=== PATIENT | male | born 1970 | race Caucasian/White ===

== ENCOUNTER 2017-09-12 08:27 | Day surgery (SDC) | payer MEDICARE ==
[~2017-09-12] VITALS: Ht 188 cm; Wt 79.4 kg
--- NOTE | ~2017-09-12 | OP ---
PATIENT NAME: RORO GARLAND MEDICAL RECORD: [id number] :74 [facility] DATE: SURGEON: MARVIN REYES MD DATE OF OPERATION: 09/12/2017 REFERRING PHYSICIAN: Dr. Abraham of [place]. LOCAL ATTENDING HAND ENDBAND CUTTER: Marilyn Tom MD PREOPERATIVE DIAGNOSES: End-stage renal disease and dependence on hemodialysis without adequate long-term dialysis access and extensive central vein occlusions. POSTOPERATIVE DIAGNOSES: End-stage renal disease and dependence on hemodialysis without adequate long-term dialysis access and extensive central vein occlusions. OPERATION PERFORMED: Right upper extremity ultrasound-guided basilic vein access, percutaneous basilic vein access and the right upper extremity venogram and superior vena cavogram, also ultrasound-guided access of the right subclavian vein with subclavian venogram, then removal of left subclavian vena port and balloon angioplasty of the left subclavian and brachiocephalic veins and then insertion of a 23 cm HemoSplit tunneled dialysis catheter via the left subclavian vein with the tip reaching well down into the right atrium, all done without complications. ANESTHESIA: General endotracheal per SOX ANALYST SURGEON: Marvin Reyes MD PREOPERATIVE NOTE: Mr. Garland is a 47-year-old white male on chronic hemodialysis in [place]. His cv/cvn cv tsc system operator is Dr. Abraham. Mr. Garland has had several dialysis access operations, both in [place] and at the [facility]. He presently is dialyzing with a right femoral tunneled catheter and has no other access. He has extensive central vein occlusions, but does have a left-sided Infusaport in place. Apparently, he has required a lot of hospitalizations and lot of IVs and lot of medications and fluids, for which reason the Infusaport was implanted. He is diabetic. I saw him in the office last week and brought him to the hospital today as an outpatient with plans to do venography and see if we can find an open vein by ultrasound and maybe get an upper extremity or cervical tunneled dialysis catheter in place, which could give us access to the right atrium, then for implantation of a HeRO AV graft. DESCRIPTION OF PROCEDURE: Under general endotracheal anesthesia, the patient was placed in supine position, prepped and draped in a sterile manner. First, with the right arm abducted, I accessed the basilic vein just above the antecubital space with micropuncture technique and ultrasound guidance and performed a venogram. The basilic vein was widely patent as was the axillary vein up to its then complete occlusion at the rib margin of the chest wall with extensive filling of chest wall collaterals. There was no filling from that direction of any central veins or the subclavian seen on those films. The microcatheter was removed and dressing applied, the arm tucked at his side, the right neck and supraclavicular area were then examined with ultrasound. The OPERATIVE REPORT [id number] RORO GARLAND internal jugular vein was obliterated. There was a deep venous structure which I was able to stick with micropuncture technique and ultrasound guidance and I then performed a venogram. This proved to be a segment of the subclavian vein, which was occluded totally medially at the confluence with the internal jugular vein and there was total occlusion of the brachiocephalic vein. I then went to the left side and looked with ultrasound and did not find anything which I could cannulate that communicated with the right atrium. I then made an incision and opened the port pocket and removed the port. I made another more medial incision and exposed the port catheter just where it dove into the chest wall to go down to penetrate into the subclavian vein. I removed that catheter over a Glidewire under fluoroscopy and then did a wire exchange using a glide catheter and placed an Amplatz wire and a 7-Kiswahili port. I then dilated the tracts through the left brachiocephalic vein and subclavian vein with an 8 mm diameter x 6 cm long U-verse angioplasty balloon. Contrast injection revealed satisfactory result without any evidence of extravasation or other complication. I was then able to pass dilators over the wire and lastly I inserted the peel-away dilator sheath from a 23 cm long HemoSplit kit. Lastly, I inserted the 23 cm HemoSplit and removed the peel-away sheath and positioned the catheter deep in the right atrium without any complications. The catheter lumens were both accessed and aspirated, free return of blood from each was confirmed. They were then flushed with saline and then heparin-locked, clamped and capped. The Dacron felt cuff was left at the surface of the pectoral muscle and that incision then closed with interrupted inverted 3-0 Vicryl and the skin further closed with interrupted simple 4-0 Prolene sutures. The catheter was sutured to the skin with 2-0 Prolene. The other incision from removal of the port was also closed with interrupted Vicryl and then Prolene. Some Dermabond glue was applied and a layer of Maxorb Ag, then a chlorhexidine patch was applied around the HemoSplit catheter at the entry site and the entirety was then covered with a standard central venous line dressing. At that point, the patient was awakened and taken to the recovery room in stable condition. I did not remove the right femoral catheter. I decided we would leave it in place and have him continue dialysis via that access. We will have him return to the hospital next week with plans to go ahead and implant an HeRO AV graft, I believe in the left upper extremity and using the dilated tract through the subclavian and left brachiocephalic vein for the HeRO outflow device. The femoral catheter then will be removed at that time if we use an Acuseal graft for early access or we could wait another week or two to remove the femoral catheter after a standard PTFE graft has had time to become seated in the tunnel. Blood loss today was less than 5 mL and none replaced. All sponges, instruments, and needles were accounted for. No drain was utilized. No surgical specimen was submitted for histopathology, although I did send the distal tip of the Infusaport catheter for culture. TRANSINT:[id number] Voice Confirmation ID: [id number] DOCUMENT ID: [id number] CC: Dr. Jerrod Abraham OPERATIVE REPORT [id number] RORO GARLAND JAMES MD CC: MARILYN TOM MD and DR JERROD ABRAHAM [id number] DICTATION DATE: 09/12/17 1607 CHIEF AIRPORT GUIDE: 09/12/17 1709 [facility] 09/12/[address] [facility] [address] [id number]
[2017-09-12] MEDS ORDERED: AMBIEN5 MG PO (09:27)
[2017-09-12] MEDS ORDERED: PACERONE100 MG PO (09:27)
[2017-09-12] MEDS ORDERED: FERRIC CITRATE210 MG PO (09:29)
[2017-09-12] MEDS ORDERED: SENSIPAR60 MG PO (09:31)
[2017-09-12] MEDS ORDERED: BACLOFEN10 MG PO (09:31)
[2017-09-12] MEDS ORDERED: DULCOLAX STOOL100 MG PO (09:32)
[2017-09-12] MEDS ORDERED: HUMULIN R100 U/ML SC (09:34)
[2017-09-12] MEDS ORDERED: LANTUS INSULIN10 ML SC (09:35)
[2017-09-12] MEDS ORDERED: LEVOXYL100 MCG PO (09:36)
[2017-09-12] MEDS ORDERED: LYRICA25 MG PO (09:37)
[2017-09-12] MEDS ORDERED: MELATONIN 3 MG1 TAB PO (09:38)
[2017-09-12] MEDS ORDERED: LYRICA50 MG PO (09:38)
[2017-09-12] MEDS ORDERED: REGLAN10 MG PO (09:39)
[2017-09-12] MEDS ORDERED: MIDODRINE HCL10 MG PO (09:39)
[2017-09-12] MEDS ORDERED: PROTONIX40 MG PO (09:39)
[2017-09-12] MEDS ORDERED: ZOCOR20 MG PO (09:40)
[2017-09-12] MEDS ORDERED: VITAMIN D31000 UNIT PO (09:40)
[2017-09-12] MEDS ORDERED: ZOLOFT25 MG PO (09:41)
[2017-09-12 09:45] LABS: BASOPHILS 1.6 % (0-2); EOSINOPHILS 8.6 % (0-7); HEMATOCRIT 44.1 % (42.0-54.0); HEMOGLOBIN 13.8 g/dL (13.5-17.5); IMMATURE GRANULOCYTES 0.5 % (0-5); LYMPHOCYTES 16.9 % (15-50); MCH 30.1 pg (26.0-34.0); MCHC 31.3 g/dL (31.0-37.0); MCV 96.3 fL (80.0-100.0); MEAN PLATELET VOLUME 11.9 fL (7.4-10.4); MONOCYTES 9.4 % (2-11); PLATELET COUNT 178 10x3/uL (130-400); RBC 4.58 10x6/uL (4.20-6.10); RDW 19.2 % (11.5-14.5); WBC 11.1 10x3/uL (4.8-10.8)
[2017-09-12 10:00] VITALS: BP 141/73; Ht 188 cm; Wt 79.4 kg
[2017-09-12 10:00] LABS: APTT 37.6 SECONDS (22.8-39.4); INR 1.07 (0.85-1.17); PROTIME 13.5 SECONDS (11.6-15.0)
[2017-09-12 10:03] LABS: CALCIUM 9.6 mg/dL (8.5-10.1); CARBON DIOXIDE 19.1 mmol/L (21.0-32.0); CREATININE - SERUM 10.2 mg/dL (0.6-1.3)
[2017-09-12 10:04] LABS: ANION GAP 21.9 mmol/L (8-16)
[2017-09-12] MEDS ORDERED: HYDROCODON-ACE1 EAC7 PO (15:39)
== END 2017-09-12 17:50 | disposition home or self-care (01) ==
LOC: D.OPS 08:27 → D.ECHO 10:30 → D.OPS 17:50 → D.ECHO 09-19 09:00
PROVIDERS: Internal Medicine Nephrology
DX: N18.6 End stage renal disease (principal); I82.890 Acute embolism and thrombosis of other specified veins; Z01.812 Encounter for preprocedural laboratory examination

== ENCOUNTER 2017-09-22 06:27 | Inpatient (IN) | payer MEDICARE ==
[~2017-09-22] VITALS: Ht 188 cm; Wt 79.5 kg
--- NOTE | ~2017-09-22 | OP ---
PATIENT NAME: RORO GARLAND MEDICAL RECORD: [id number] :74 LOCATION:D. D.7 ADMISSION DATE:09/23/17 SURGEON: MARVIN REYES MD DATE OF OPERATION: PREOPERATIVE DIAGNOSIS: POSTOPERATIVE DIAGNOSIS: OPERATION PERFORMED: SURGEON: Marvin Reyes MD ANESTHESIA: General endotracheal. OPERATIVE FINDINGS: Very severely strictured left subclavian and brachiocephalic veins and a severely atherosclerotic brachial artery. PREOPERATIVE NOTE: Mr. Garland is an unfortunate 47-year-old white male with diabetes and severe generalized atherosclerotic disease and end-stage renal disease and he is status post multiple failed accesses and is particularly a victim of severe central vein occlusion was due to prior catheter access. About 2 weeks ago, I took him to the operating room and removed a venous access port from his left subclavian vein, which was the only access I could find to his right atrium. Over a guidewire, I dilated and performed angiography of a very strictured left subclavian and left brachiocephalic vein and I was able to implant a 23 cm HemoSplit tunneled dialysis catheter. He is returned to the operating room at this time in order to implant a HeRO graft and I will use that tract we have already begun work on for the pathway of insertion of a HeRO outflow device. DESCRIPTION OF PROCEDURE: With the patient under general endotracheal anesthesia, he was positioned supinely and prepped and draped in sterile manner. I advanced a guidewire through the HemoSplit in the left subclavian and removed it under fluoroscopy and placed a 7-Ugandan introducer sheath and performed a superior venacavogram, which demonstrated again the severely strictured left subclavian and left brachiocephalic veins. I performed then a guidewire exchange placing an Amplatz wire deeply in the inferior vena cava and over that dilated again the subclavian and brachiocephalic veins with an 8 mm angioplasty balloon and repeated contrast injection revealed no complications and significant improvement in the diameter of this strictured vein. I then was able to pass dilators and lastly a dilator peel-away introducer and then through that, I inserted a HeRO outflow device, which was placed over a guidewire over 8 mm balloon. I was able to get the tip of the HeRO way down in the right atrium and removed the peel-away sheath and then I was able to inject contrast to be at the outflow device and confirmed its position to be appropriate in the right atrium. It was heparin lock, clamped and capped. I made an incision then over the deltopectoral groove and pulled the outflow device from the insertion site through a subcutaneous tunnel to the deltopectoral groove. I then surveyed the arm with ultrasound and found a site in about mid humerus level where the brachial artery appeared to be approachable though atherosclerotic I made a longitudinal incision and exposed the artery and controlled it with Silastic loops. The artery was opened and flushed proximally and distally with heparinized saline. I then chose a 6-mm diameter straight Acuseal PTFE graft. I beveled one in then anastomosed it to the artery with running 6-0 Prolene. OPERATIVE REPORT [id number] RORO GARLAND When completed, the vessel and graft were flushed with heparinized saline and the suture line was treated with BioGlue. I made a counter incision distally just above the antecubital space and then placed the graft through a subcutaneous tunnel down to that counter incision and then back up from the counterincision all the way to the deltopectoral groove placing the graft as superficial as possible. It was then shortened, flushed again with heparinized saline. Fluoroscopy was again used to confirm appropriate positioning of the tip of the HeRO outflow device, which was then shortened in the deltopectoral groove. I attached a connector to the end of the Acuseal graft and then connected that to the outflow device all in the usual manner. When all this was done and the occluding clamps and loops were released, excellent flow was immediately established within the new HeRO. The connection was sutured to the investing pectoral fascia with 2-0 Prolene. The wounds all irrigated with Ancef and gentamicin solution. The wounds were closed with Vicryl and running intracuticular Monocryl, sealed with Dermabond glue and dressed with Maxorb Ag, Tegaderm, and Cavilon skin prep. The patient was awakened from his anesthetic and taken to the recovery room. Blood loss during the operation was about 100 cc. None was replaced intraoperatively. All sponges, instruments and needles were accounted for and no drain was utilized and no surgical specimen was submitted for histopathology. PLAN: The patient will remain as an inpatient here in the hospital over the weekend and have dialysis here Monday via his new Acuseal HeRO and then be discharged to return to [place]. His unit there will need to be advised to use Acuseal technique for the next 2 weeks. I would like to see him back at [facility] on Monday week about 10 days from now and plan at that time to do his postop followup visit and remove the remaining femoral tunnel dialysis catheter assuming he has no difficulty with the Acuseal HeRO performing while he is down in [place]. I also think he should be on long-term Plavix therapy. The graft in the left arm in a loop configuration taking origin from the proximal brachial artery and connecting with the HeRO outflow device in the deltopectoral groove. TRANSINT:[id number] Voice Confirmation ID: [id number] DOCUMENT ID: [id number] MARVIN REYES MD CC: DR ELDER ADAMS [id number] DICTATION DATE: 09/29/17 1414 WALL INSULATION SPRAYER: 09/29/17 1549 [facility] 09/26/17 [facility] [address] [place] [address]
[~2017-09-22 06:27] MED LIST: AMBIEN5 MG PO; BACLOFEN10 MG PO; DULCOLAX STOOL100 MG PO; FERRIC CITRATE210 MG PO; HUMULIN R100 U/ML SC; HYDROCODON-ACE1 EAC7 PO; LANTUS INSULIN10 ML SC; LEVOXYL100 MCG PO; LYRICA25 MG PO; LYRICA50 MG PO; MELATONIN 3 MG1 TAB PO; MIDODRINE HCL10 MG PO; PACERONE100 MG PO; PROTONIX40 MG PO; REGLAN10 MG PO; SENSIPAR60 MG PO; VITAMIN D31000 UNIT PO; ZOCOR20 MG PO; ZOLOFT25 MG PO
[2017-09-22 07:12] LABS: BASOPHILS 1.1 % (0-2); EOSINOPHILS 8.4 % (0-7); HEMOGLOBIN 14.8 g/dL (13.5-17.5); IMMATURE GRANULOCYTES 0.3 % (0-5); LYMPHOCYTES 22.1 % (15-50); MCH 30.3 pg (26.0-34.0); MCHC 31.5 g/dL (31.0-37.0); MCV 96.3 fL (80.0-100.0); MEAN PLATELET VOLUME 12.5 fL (7.4-10.4); MONOCYTES 11.1 % (2-11); PLATELET COUNT 150 10x3/uL (130-400); RBC 4.88 10x6/uL (4.20-6.10); RDW 17.8 % (11.5-14.5); WBC 12.8 10x3/uL (4.8-10.8)
[2017-09-22 07:23] LABS: APTT 34.3 SECONDS (22.8-39.4); PROTIME 12.8 SECONDS (11.6-15.0)
[2017-09-22 07:30] LABS: CALCIUM 9.3 mg/dL (8.5-10.1); CARBON DIOXIDE 16.4 mmol/L (21.0-32.0); CREATININE - SERUM 9.2 mg/dL (0.6-1.3)
[2017-09-22 07:32] LABS: POTASSIUM - SERUM 6.4 mmol/L (3.5-5.1)
[2017-09-22 09:07] VITALS: BP 139/78; BMI 22.5
[2017-09-22 09:54] LABS: POTASSIUM - SERUM 5.8 mmol/L (3.5-5.1)
[2017-09-22 19:00] VITALS: BP 151/80
[2017-09-23 04:00] VITALS: BP 140/78
[2017-09-23 08:59] LABS: BASOPHILS 1.3 % (0-2); HEMATOCRIT 41.3 % (42.0-54.0); IMMATURE GRANULOCYTES 0.3 % (0-5); MCH 29.8 pg (26.0-34.0); MCHC 31.5 g/dL (31.0-37.0); MCV 94.7 fL (80.0-100.0); MEAN PLATELET VOLUME 11.7 fL (7.4-10.4); MONOCYTES 11.2 % (2-11); NEUTROPHILS 51.2 % (40-80); PLATELET COUNT 124 10x3/uL (130-400); RBC 4.36 10x6/uL (4.20-6.10); RDW 17.3 % (11.5-14.5)
[2017-09-23 09:11] LABS: APTT 32.8 SECONDS (22.8-39.4); INR 1.04 (0.85-1.17); PROTIME 13.2 SECONDS (11.6-15.0)
[2017-09-23 09:12] LABS: ANION GAP 18.2 mmol/L (8-16); CARBON DIOXIDE 22.7 mmol/L (21.0-32.0); CREATININE - SERUM 8.1 mg/dL (0.6-1.3); POTASSIUM - SERUM 5.9 mmol/L (3.5-5.1)
[2017-09-23 09:50] VITALS: BP 125/75
[2017-09-23 20:40] VITALS: BP 159/77
[2017-09-24 00:15] VITALS: BP 146/78
[2017-09-24 05:09] VITALS: BP 130/78
[2017-09-24 07:59] VITALS: BP 118/74
[2017-09-24 11:22] VITALS: BP 126/71
[2017-09-24 14:11] LABS: ANION GAP 17.8 mmol/L (8-16); CALCIUM 8.9 mg/dL (8.5-10.1); CARBON DIOXIDE 23.6 mmol/L (21.0-32.0)
[2017-09-24 14:12] LABS: CREATININE - SERUM 10.2 mg/dL (0.6-1.3)
[2017-09-24 14:15] LABS: POTASSIUM - SERUM 6.4 mmol/L (3.5-5.1)
[2017-09-24 15:32] VITALS: BP 131/66
[2017-09-24 20:58] VITALS: BP 124/88
[2017-09-25 01:12] VITALS: BP 138/73
[2017-09-25 05:58] VITALS: BP 162/80
[2017-09-25 08:08] VITALS: BP 136/75
[2017-09-25 10:58] VITALS: BP 131/71
[2017-09-25] MEDS ORDERED: PLAVIX75 MG PO (13:16)
[2017-09-25 15:33] VITALS: BP 128/80
[2017-09-25 16:00] LABS: HEMATOCRIT 36.6 % (42.0-54.0); HEMOGLOBIN 11.9 g/dL (13.5-17.5); MCH 29.8 pg (26.0-34.0); MCHC 32.5 g/dL (31.0-37.0); MCV 91.7 fL (80.0-100.0); MEAN PLATELET VOLUME 11.5 fL (7.4-10.4); PLATELET COUNT 119 10x3/uL (130-400); RBC 3.99 10x6/uL (4.20-6.10); RDW 16.4 % (11.5-14.5); WBC 9.2 10x3/uL (4.8-10.8)
[2017-09-25 16:26] LABS: ANION GAP 17.7 mmol/L (8-16); CALCIUM 8.1 mg/dL (8.5-10.1); POTASSIUM - SERUM 5.7 mmol/L (3.5-5.1)
[2017-09-25 16:31] LABS: BASOPHILS 1 % (0-2); EOSINOPHILS 4 % (0-7); LYMPHOCYTES 22 % (15-50); MONOCYTES 6 % (2-11); NEUTROPHILS 67 % (40-80); PLATELET ESTIMATE DECREASED
[2017-09-25 20:00] VITALS: BP 125/79
[2017-09-26] VITALS: BP 120/78
[2017-09-26 04:00] VITALS: BP 126/80
[2017-09-26 05:09] VITALS: BP 125/75; Ht 188 cm; Wt 79.5 kg
[2017-09-26 09:25] VITALS: BP 140/70
[2017-09-26 14:19] LABS: HEPATITIS C ANTIBODY 0.6 (0.0-0.9)
== END 2017-09-26 11:04 | DRG 628 ==
LOC: D.OPS 06:27 → D.M2 19:52 → D.OPS 09-23 12:16 → D.M2 09-23 12:30
PROVIDERS: Anesthesiology; Internal Medicine Nephrology; Surgery
PROC: 03743ZZ Dilation of Left Subclavian Artery, Percutaneous Approach (ICD-10-PCS; 2017-09-23)
PROC: 03783ZZ Dilation of Left Brachial Artery, Percutaneous Approach (ICD-10-PCS; 2017-09-23)
PROC: 037Y3ZZ Dilation of Upper Artery, Percutaneous Approach (ICD-10-PCS; 2017-09-23)
PROC: 03180JV Bypass Left Brachial Artery to Superior Vena Cava with Synthetic Substitute, Open Approach (ICD-10-PCS; principal; 2017-09-23 10:00)
PROC: 5A1D70Z Performance of Urinary Filtration, Intermittent, Less than 6 Hours Per Day (ICD-10-PCS; 2017-09-25)
DX: E87.5 Hyperkalemia (principal); N18.6 End stage renal disease; I12.0 Hypertensive chronic kidney disease with stage 5 chronic kidney disease or end stage renal disease; I87.1 Compression of vein; I70.298 Other atherosclerosis of native arteries of extremities, other extremity; E11.22 Type 2 diabetes mellitus with diabetic chronic kidney disease; Z99.2 Dependence on renal dialysis; Z79.4 Long term (current) use of insulin; I48.91 Unspecified atrial fibrillation; J44.9 Chronic obstructive pulmonary disease, unspecified; F17.200 Nicotine dependence, unspecified, uncomplicated; I95.9 Hypotension, unspecified

== ENCOUNTER 2018-06-11 22:45 | Inpatient (IN) | payer MEDICARE ==
[~2018-06-11] VITALS: Ht 188 cm; Wt 75.5 kg
--- NOTE | ~2018-06-11 | MORECARE ---
CASE MANAGEMENT DISCHARGE SUMMARY PATIENT: CARLO GARLAND UNIT: [id number] ADM DATE: 06/11/18 AGE: 48 : 74 SEX: M ROOM/BED: D.2136 AUTHOR: EMIR,DOC PHYSICIAN: REFERRING PHYSICIAN: ARIADNE BRAVO MD DATE OF SERVICE: 06/18/18 Discharge Plan Patient Name: CARLO GARLAND Facility: [facility]:[place] : 1970 Planned Disposition: Nursing Facility [facility] Cert Anticipated Discharge Date: 06/18/18 Discharge Date: Expected LOS: 7 Initial Reviewer: [email or web address] Initial Review Date: 06/13/2018 Generated: 06/18/18 4:52 pm Comments DCP- Discharge Planning Updated by [email or web address]: Carlo Donis on 06/18/18 2:[address] Patient Name: CARLO GARLAND Encounter No: [id number] : 1970 Primary Insurance: MEDICARE A & B Anticipated DC Date: 06-18-2018 Planned Disposition: Nursing Facility [facility] Cert External Planned Provider: [facility], FIELD SUPERVISOR [employer] MEDICAID BED DCP follow-up note: CM FAXED UPDATE TO [facility], . CM CALLED AND SPOKE TO DIEGO AT [facility], , PROVIDED UPDATE WITH PROJECTED DISCHARGE OF TODAY OR TOMORROW. DIEGO REPORTS THEY WILL ACCEPT PT BACK FOR NURSING HOME CARE, PT HAS NOT SKILLED DAYS REMAINING. CM SPOKE TO PT'S MOTHER IN ROOM WHO REPORTS THEY ARE READY FOR PT TO RETURN TODAY. IMPORTANT MESSAGE FROM MEDICARE PROVIDED AND EXPLAINED. FOR DISCHARGE, FAX DISCHARGE INFORMATION TO [facility], ; [facility], . PT TO TRANSPORT VIA AMBULANCE HE IS NOT ABLE TO SIT SAFELY FOR THE DURATION OF TRANSPORTATION, APPROXIMATELY THREE HOURS. Carlo Donis, CASE MANAGEMENT Appended by Carlo Donis on 06/18/2018 15:52 MEDICAL CONCIERGE: CM RECEIVED DISCHARGE ORDERS, CALLED AND SPOKE TO ROXANA AT [facility], . WHO REPORTS THEY CAN ACCEPT BACK TODAY. CM FAXED DISCHARGE INFORMATION TO [facility], . NURSE REPORT TO BE CALLED TO [facility], . PT TO TRANSPORT VIA AMBULANCE. Carlo Donis, CASE MANAGEMENT DCP- Discharge Planning Updated by [id number]: Bebe Motley on 06/13/18 8:[address] Patient Name: CARLO GARLAND Admission Status: Elective Accout number: [id number] Admission Date: 06-11-2018 : 1970 Admission Diagnosis: Attending: ARIADNE BRAVO Current LOS: 2 Anticipated DC Date: 06-16-2018 Planned Disposition: Nursing Facility [facility] Primary Insurance: MEDICARE A & B Discharge Planning Comments: CM MET WITH PATIENT AND MOTHER (ARIAS) REGARDING D/C NEEDS AND PLANS. PATIENT STATED HE HAS LIVED AT [facility] FOR ABOUT 5 YEARS. PATIENT HAS DIALYSIS ON IN [place] AND IS TRANSPORTED THERE. PATIENT STATED HE WAS UP IN WHEELCHAIR DAILY BEFORE HE FELL. PATIENT IS A RT. AKA AND NOW HAS A LEFT FEMUR FRACTURE. PATIENTS MOTHER WAS CONCERNED HOW TO GET PATIENT BACK TO [facility] AFTER DISCHARGE. CM EXPLAINED THAT THEY WOULD NOTIFY [facility] AND DISCUSS TRANSPORT WHEN PATIENT IS READY FOR DISCHARGE. CM WILL CONTINUE TO FOLLOW PATIENT WITH D/C NEEDS AND PLANS. PCP DR. DMITRI HERNANDEZ ([facility] PHYSICIAN) PHARMACY IS IN HOUSE AT [facility] ([facility] [phone] [facility] [phone] Lead Based Paint Technician: Bebe Motley DCPIA - Discharge Planning Initial Assessment Updated by [email or web address]: Bebe Motley on 06/13/18 9:07 am * Is the patient Alert and Oriented? Yes * How many steps to enter\exit or inside your home? * PCP DR. DMITRI HERNANDEZ (FACILITY DR.) * Pharmacy IN HOUSE * Preadmission Environment [facility] * [facility] [phone] * ADLs Partial Dependent * Partial ADLs (Assistance needed) Bathing Dressing Medication Management Toileting Transfers * Equipment Glucometer Hospital Bed Wheelchair * Other Equipment FACILITY HAS EQUIPMENT NEEDED FOR PATIENT * List name and contact numbers for known caregivers / representatives who currently or will assist patient after discharge: [facility] [phone] * Verbal permission to speak to the caregivers and representatives has been obtained from the patient. Yes * Please name any agencies selected above. [facility] [place] [facility] MWF * Additional services required to return to the preadmission environment? Yes * Can the patient safely return to the preadmission environment? Yes * Has this patient been hospitalized within the prior 30 days at any hospital? No Coverage Notice Reviewer: [email or web address] Jennifer Donis Notice Issued Date-Time: 06/18/2018 11:49 Notice Type: IM Discharge Notice Notice Delivered To: Family Member Relationship to Patient: Mother Print Line Tailer Name: BRENDEN GONCALVES Delivery Method: HAND - Hand Delivered Fe Days: Prior Verbal Notification: Recipient Understood Notice: Yes Recipient Signature: Yes Med Rec Note Co-signed by Attending: Coverage Notice Comment: Last DP export: 06/18/18 10:54 Patient Name: CARLO GARLAND Page 79908 at 1552 All edits/amendments must be made on the electronic document DICTATION DATE: 06/18/18 155 MANAGER TECHNICAL: SARITA 06/18/18 155 RPT#: [id number] DC DATE: STATUS: ADM IN [facility] [address] [place] [address] END OF REPORT
--- NOTE | ~2018-06-11 | MORECARE ---
CASE MANAGEMENT DISCHARGE SUMMARY PATIENT: RORO GARLAND UNIT: [id number] ADM DATE: 06/11/18 AGE: 48 : 74 SEX: M ROOM/BED: D.2136 AUTHOR: EMIRDOC PHYSICIAN: REFERRING PHYSICIAN: ARIADNE BRAVO MD DATE OF SERVICE: 06/18/18 Discharge Plan Patient Name: RORO GARLAND Facility: [facility]:[place] : 1970 Planned Disposition: Nursing Facility [facility] Cert Anticipated Discharge Date: 06/18/18 Discharge Date: Expected LOS: 7 Initial Reviewer: [email or web address] Initial Review Date: 06/13/2018 Generated: 06/18/18 12:31 pm Comments DCP- Discharge Planning Updated by [email or web address]: Bebe Motley on 06/13/18 8:[address] Patient Name: RORO GARLAND Admission Status: Elective Accout number: [id number] Admission Date: 06-11-2018 : 1970 Admission Diagnosis: Attending: ARIADNE BRAVO Current LOS: 2 Anticipated DC Date: 06-16-2018 Planned Disposition: Nursing Facility [facility] Cert Primary Insurance: MEDICARE A & B Discharge Planning Comments: CM MET WITH PATIENT AND MOTHER (ARIAS) REGARDING D/C NEEDS AND PLANS. PATIENT STATED HE HAS LIVED AT [facility] FOR ABOUT 5 YEARS. PATIENT HAS DIALYSIS ON IN [place] AND IS TRANSPORTED THERE. PATIENT STATED HE WAS UP IN WHEELCHAIR DAILY BEFORE HE FELL. PATIENT IS A RT. AKA AND NOW HAS A LEFT FEMUR FRACTURE. PATIENTS MOTHER WAS CONCERNED HOW TO GET PATIENT BACK TO [facility] AFTER DISCHARGE. CM EXPLAINED THAT THEY WOULD NOTIFY [facility] AND DISCUSS TRANSPORT WHEN PATIENT IS READY FOR DISCHARGE. CM WILL CONTINUE TO FOLLOW PATIENT WITH D/C NEEDS AND PLANS. PCP DR. DMITRI HERNANDEZ ([facility]) PHARMACY IS IN HOUSE AT [facility] [place] [phone] [facility] [phone] Fisher Hand Line: Bebe Motley DCPIA - Discharge Planning Initial Assessment Updated by [email or web address]: Bebe Motley on 06/13/18 9:07 am * Is the patient Alert and Oriented? Yes * How many steps to enter\exit or inside your home? * PCP DR. DMITRI [place]DEZ [place] * Pharmacy IN HOUSE * Preadmission Environment Car Manager Detention * Facility Name [facility] [phone] * ADLs Partial Dependent * Partial ADLs (Assistance needed) Bathing Dressing Medication Management Toileting Transfers * Equipment Glucometer Hospital Bed Wheelchair * Other Equipment FACILITY HAS EQUIPMENT NEEDED FOR PATIENT * List name and contact numbers for known caregivers / representatives who currently or will assist patient after discharge: [facility] ([facility] [phone] * Verbal permission to speak to the caregivers and representatives has been obtained from the patient. Yes * Please name any agencies selected above. [facility] [place] [facility] M[facility] * Additional services required to return to the preadmission environment? Yes * Can the patient safely return to the preadmission environment? Yes * Has this patient been hospitalized within the prior 30 days at any hospital? No External Providers External Provider: OTHER-OTHER Next Contact Date: 06/18/2018 Service Request Date: Service Type: Resolution: Reviewer: Comments: Last DP export: 06/18/18 10:04 Patient Name: RORO GARLAND Page 21009 at 1132 All edits/amendments must be made on the electronic document DICTATION DATE: 06/18/18 113 SECURITY SYSTEMS INSTALLER: SARITA 06/18/18 113 RPT#: [id number] DC DATE: STATUS: ADM IN [facility] [address] [place] [address] END OF REPORT
--- NOTE | ~2018-06-11 | MORECARE ---
CASE MANAGEMENT DISCHARGE SUMMARY PATIENT: RORO GARLAND UNIT: [id number] ADM DATE: 06/11/18 AGE: 48 : 74 SEX: M ROOM/BED: D.2136 AUTHOR: EMIRDOC PHYSICIAN: REFERRING PHYSICIAN: ARIADNE BRAVO MD DATE OF SERVICE: 06/18/18 Discharge Plan Patient Name: RORO GARLAND Facility: [facility]:[place] : 1970 Planned Disposition: Nursing Facility [facility] Cert Anticipated Discharge Date: 06/18/18 Discharge Date: Expected LOS: 7 Initial Reviewer: [email or web address] Initial Review Date: 06/13/2018 Generated: 06/18/18 12:04 pm Comments DCP- Discharge Planning Updated by [email or web address]: Bebe Motley on 06/13/18 8:[address] Patient Name: RORO GARLAND Admission Status: Elective Accout number: [id number] Admission Date: 06-11-2018 : 1970 Admission Diagnosis: Attending: ARIADNE BRAVO Current LOS: 2 Anticipated DC Date: 06-16-2018 Planned Disposition: Nursing Facility [facility] Cert Primary Insurance: MEDICARE A & B Discharge Planning Comments: CM MET WITH PATIENT AND MOTHER (ARIAS) REGARDING D/C NEEDS AND PLANS. PATIENT STATED HE HAS LIVED AT [facility] FOR ABOUT 5 YEARS. PATIENT HAS DIALYSIS ON IN [place] AND IS TRANSPORTED THERE. PATIENT STATED HE WAS UP IN WHEELCHAIR DAILY BEFORE HE FELL. PATIENT IS A RT. AKA AND NOW HAS A LEFT FEMUR FRACTURE. PATIENTS MOTHER WAS CONCERNED HOW TO GET PATIENT BACK TO [place] AFTER DISCHARGE. CM EXPLAINED THAT THEY WOULD NOTIFY [place] AND DISCUSS TRANSPORT WHEN PATIENT IS READY FOR DISCHARGE. CM WILL CONTINUE TO FOLLOW PATIENT WITH D/C NEEDS AND PLANS. PCP DR. DMITRI HERNANDEZ ([place] PHYSICIAN) PHARMACY IS IN HOUSE AT [place] [facility] ([facility]) [phone] [facility] [phone] Precision Jig Grinder: Bebe Motley DCPIA - Discharge Planning Initial Assessment Updated by [email or web address]: Bebe Motley on 06/13/18 9:07 am * Is the patient Alert and Oriented? Yes * How many steps to enter\exit or inside your home? * PCP DR. DMITRI HER[place]NDEZ ([place]) * Pharmacy IN HOUSE * Preadmission Environment [employer] * Facility Name [facility] [phone] * ADLs Partial Dependent * Partial ADLs (Assistance needed) Bathing Dressing Medication Management Toileting Transfers * Equipment Glucometer Hospital Bed Wheelchair * Other Equipment FACILITY HAS EQUIPMENT NEEDED FOR PATIENT * List name and contact numbers for known caregivers / representatives who currently or will assist patient after discharge: ARIAS ([facility]) [phone] * Verbal permission to speak to the caregivers and representatives has been obtained from the patient. Yes * Please name any agencies selected above. [facility] [place] [facility] M[facility] * Additional services required to return to the preadmission environment? Yes * Can the patient safely return to the preadmission environment? Yes * Has this patient been hospitalized within the prior 30 days at any hospital? No Last DP export: 06/13/18 8:21 a Patient Name: RORO GARLAND Page [phone] at 1104 All edits/amendments must be made on the electronic document DICTATION DATE: 06/18/181103 FREIGHT HANDLER: SARITA 06/18/181103 RPT#: [id number] DC DATE: STATUS: ADM IN [facility] [address] [place] [address] END OF REPORT
--- NOTE | ~2018-06-11 | MORECARE ---
CASE MANAGEMENT DISCHARGE SUMMARY PATIENT: CARLO GARLAND UNIT: [id number] ADM DATE: 06/11/18 AGE: 48 : 74 SEX: M ROOM/BED: D.2136 AUTHOR: EMIRDOC PHYSICIAN: REFERRING PHYSICIAN: ARIADNE BRAVO MD DATE OF SERVICE: 06/18/18 Discharge Plan Patient Name: CARLO GARLAND Facility: [facility]:[place] : 1970 Planned Disposition: Nursing Facility [facility] Cert Anticipated Discharge Date: 06/18/18 Discharge Date: Expected LOS: 7 Initial Reviewer: [email or web address] Initial Review Date: 06/13/2018 Generated: 06/18/18 12:54 pm Comments DCP- Discharge Planning Updated by [email or web address]: Carlo Donis on 06/18/18 10:[address] Patient Name: CARLO GARLAND Encounter No: [id number] : 1970 Primary Insurance: MEDICARE A & B Anticipated DC Date: 06-18-2018 Planned Disposition: Nursing Facility [facility] Cert External Planned Provider[facility], [facility]MENT [facility]ATIONS [facility] MEDICAID BED DCP follow-up note: CM FAXED UPDATE TO [facility], . CM CALLED AND SPOKE TO DIEGO AT [place], , PROVIDED UPDATE WITH PROJECTED DISCHARGE OF TODAY OR TOMORROW. DIEGO REPORTS THEY WILL ACCEPT PT BACK FOR GOVERNMENT RELATIONS DIRECTOR CARE, PT HAS NOT SKILLED DAYS REMAINING. CM SPOKE TO PT'S MOTHER IN ROOM WHO REPORTS THEY ARE READY FOR PT TO RETURN TODAY. IMPORTANT MESSAGE FROM MEDICARE PROVIDED AND EXPLAINED. FOR DISCHARGE, FAX DISCHARGE INFORMATION TO [facility], ; NURSE REPORT TO BE CALLED TO [facility], . PT TO TRANSPORT VIA AMBULANCE HE IS NOT ABLE TO SIT SAFELY FOR THE DURATION OF TRANSPORTATION, APPROXIMATELY [address] DCP- Discharge Planning Updated by [email or web address]: Bebe Motley on 06/13/18 8:[address] Patient Name: CARLO GARLAND Admission Status: Elective Accout number: [id number] Admission Date: 06-11-2018 : 1970 Admission Diagnosis: Attending: ARIANDE BRAVO Current LOS: 2 Anticipated DC Date: 06-16-2018 Planned Disposition: Nursing Facility [facility] Primary Insurance: MEDICARE A & B Discharge Planning Comments: CM MET WITH PATIENT AND MOTHER (ARIAS) REGARDING D/C NEEDS AND PLANS. PATIENT STATED HE HAS LIVED AT [facility] FOR ABOUT 5 YEARS. PATIENT HAS DIALYSIS ON IN [place] AND IS TRANSPORTED THERE. PATIENT STATED HE WAS UP IN WHEELCHAIR DAILY BEFORE HE FELL. PATIENT IS A RT. AKA AND NOW HAS A LEFT FEMUR FRACTURE. PATIENTS MOTHER WAS CONCERNED HOW TO GET PATIENT BACK TO [place] AFTER DISCHARGE. CM EXPLAINED THAT THEY WOULD NOTIFY [place] AND DISCUSS TRANSPORT WHEN PATIENT IS READY FOR DISCHARGE. CM WILL CONTINUE TO FOLLOW PATIENT WITH D/C NEEDS AND PLANS. PCP DR. DMITRI HERNANDEZ ([place] PHYSICIAN) PHARMACY IS IN HOUSE AT [place] [facility] ([facility] [phone] [facility] [phone] Pot Annealer: Bebe Motley DCPIA - Discharge Planning Initial Assessment Updated by [email or web address]: Bebe Motley on 06/13/18 9:07 am * Is the patient Alert and Oriented? Yes * How many steps to enter\exit or inside your home? * PCP DR. DMITRI HERNANDEZ (FACILITY DR.) * Pharmacy IN HOUSE * Preadmission Environment [facility] * Facility Name [facility] [phone] * ADLs Partial Dependent * Partial ADLs (Assistance needed) Bathing Dressing Medication Management Toileting Transfers * Equipment Glucometer Hospital Bed Wheelchair * Other Equipment FACILITY HAS EQUIPMENT NEEDED FOR PATIENT * List name and contact numbers for known caregivers / representatives who currently or will assist patient after discharge: ARIAS ([facility]) [phone] * Verbal permission to speak to the caregivers and representatives has been obtained from the patient. Yes * Please name any agencies selected above. [facility] [place] [facility] M[facility] * Additional services required to return to the preadmission environment? Yes * Can the patient safely return to the preadmission environment? Yes * Has this patient been hospitalized within the prior 30 days at any hospital? No Coverage Notice Reviewer: [id number] - Carlo Donis Notice Issued Date-Time: 06/18/2018 11:49 Notice Type: IM Discharge Notice Notice Delivered To: Family Member Relationship to Patient: Mother Transit Proof Machine Operator Name: BRENDEN GONCALVES Delivery Method: HAND - Hand Delivered Fe Days: Prior Verbal Notification: Recipient Understood Notice: Yes Recipient Signature: Yes Med Rec Note Co-signed by Attending: Coverage Notice Comment: Last DP export: 06/18/18 10:31 Patient Name: CARLO GARLAND Page 60172 at 1154 All edits/amendments must be made on the electronic document DICTATION DATE: 06/18/18 1153 IN SERVICE COORDINATOR: SARITA 06/18/18 1153 RPT#: [id number] DC DATE: STATUS: ADM IN [facility] [address] [place] [address] END OF REPORT
--- NOTE | ~2018-06-11 | MORECARE ---
CASE MANAGEMENT DISCHARGE SUMMARY PATIENT: RORO GARLAND UNIT: [id number] ADM DATE: 06/11/18 AGE: 48 : 74 SEX: M ROOM/BED: D.2136 AUTHOR: EMIRDOC PHYSICIAN: REFERRING PHYSICIAN: ARIADNE BRAVO MD DATE OF SERVICE: 06/13/18 Discharge Plan Patient Name: RORO GARLAND Facility: [facility]:[place] : 1970 Planned Disposition: Nursing Facility [facility] Cert Anticipated Discharge Date: 06/16/18 Discharge Date: Expected LOS: 5 Initial Reviewer: [email or web address] Initial Review Date: 06/13/2018 Generated: 06/13/18 10:21 am Comments DCP- Discharge Planning Updated by [email or web address]: Bebe Motley on 06/13/18 8:[address] Patient Name: RORO GARLAND Admission Status: Elective Accout number: [id number] Admission Date: 06-11-2018 : 1970 Admission Diagnosis: Attending: ARIADNE BRAVO Current LOS: 2 Anticipated DC Date: 06-16-2018 Planned Disposition: Nursing Facility [facility] Cert Primary Insurance: MEDICARE A & B Discharge Planning Comments: CM MET WITH PATIENT AND MOTHER (ARIAS) REGARDING D/C NEEDS AND PLANS. PATIENT STATED HE HAS LIVED AT [facility] FOR ABOUT 5 YEARS. PATIENT HAS DIALYSIS ON IN [place] AND IS TRANSPORTED THERE. PATIENT STATED HE WAS UP IN WHEELCHAIR DAILY BEFORE HE FELL. PATIENT IS A RT. AKA AND NOW HAS A LEFT FEMUR FRACTURE. PATIENTS MOTHER WAS CONCERNED HOW TO GET PATIENT BACK TO [place] AFTER DISCHARGE. CM EXPLAINED THAT THEY WOULD NOTIFY [place] AND DISCUSS TRANSPORT WHEN PATIENT IS READY FOR DISCHARGE. CM WILL CONTINUE TO FOLLOW PATIENT WITH D/C NEEDS AND PLANS. PCP DR. DMITRI HERNANDEZ ([place] PHYSICIAN) PHARMACY IS IN HOUSE AT [place] [facility] ([facility] [phone] [facility] [phone] Power House Control Room Operator: Bebe Motley DCPIA - Discharge Planning Initial Assessment Updated by [email or web address]: Bebe Motley on 06/13/18 9:07 am * Is the patient Alert and Oriented? Yes * How many steps to enter\exit or inside your home? * PCP DR. DMITRI HERNANDEZ ([facility] [place]) * Pharmacy IN HOUSE * Preadmission Environment [facility] * Facility Name [facility] [phone] * ADLs Partial Dependent * Partial ADLs (Assistance needed) Bathing Dressing Medication Management Toileting Transfers * Equipment Glucometer Hospital Bed Wheelchair * Other Equipment FACILITY HAS EQUIPMENT NEEDED FOR PATIENT * List name and contact numbers for known caregivers / representatives who currently or will assist patient after discharge: [facility] ([facility] [phone] * Verbal permission to speak to the caregivers and representatives has been obtained from the patient. Yes * Please name any agencies selected above. [facility] [place] [facility] * Additional services required to return to the preadmission environment? Yes * Can the patient safely return to the preadmission environment? Yes * Has this patient been hospitalized within the prior 30 days at any hospital? No Last DP export: 06/13/18 8:14 a Patient Name: RORO GARLAND Page [phone] at 0921 All edits/amendments must be made on the electronic document DICTATION DATE: 06/13/18920 CAN SEALER: SARITA 06/13/18920 RPT#: [id number] DC DATE: STATUS: ADM IN [facility] [address] [place] [address] END OF REPORT
--- NOTE | ~2018-06-11 | OP ---
PATIENT NAME: RORO GARLAND MEDICAL RECORD: [id number] :[birth year] LOCATION:[facility] D.2136 ADMISSION DATE:06/11/18 SURGEON: LYRIC MORFIN DO DATE OF OPERATION: 06/13/2018 PROCEDURE PERFORMED: Left femur retrograde IM nail. POSTOPERATIVE DIAGNOSIS: Closed displaced left distal femoral shaft fracture. PROCEDURE PERFORMED: Closed displaced left distal femoral shaft fracture. INDICATION: Mr. Garland is a 48 year old with severe renal disease, on dialysis, and also has had multiple infections. 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 He fell out of bed and fractured his left femur. He was transferred to our hospital here for dialysis problems. X-rays were done in the other hospital and seen to have a femur fracture. He was transferred and I was consulted. I informed the patient that he is at very, very high risk for infection and stabilizing the fracture could provide him some pain relief. He does not ambulate on the left leg much anyway, but the fracture stabilization may give him some pain relief rather than having it being more displaced. He said he would like to have the procedure knowing that he may have possible infection, risk of damage to nerves or vessels, even . The patient was informed of all that and signed consent. SURGEON: Lyric Morfin DO DESCRIPTION OF PROCEDURE: The patient was taken to the operative suite and laid in the supine position. Left lower extremity was prepped and draped in sterile fashion. Once he was prepped and draped, time-out was performed and everyone was in agreement with correct side, site, patient, and procedure. Two grams of Ancef was given to the patient preoperatively. The left knee was then marked out. An incision was made just inferior to the patella. I went through the patellar tendon and the fat pad was partially removed. A starting point was gained on the AP and lateral and the instrument was then used. A reduction tool was then brought at the femoral canal and the guidewire was placed. Guidewire was then measured, measured to 400 nail end. We then reamed up to a 13 and a #12 nail was put in, and packed it into place. The distal locking screws were then placed, 2 transverse and 1 oblique; and then the proximal locking screw was placed using perfect circles with #38 screw. The area of the nail was then locked distally and then copious irrigation was done. The knee joint was closed. The patellar tendon was closed using #1 Vicryl in a isrezg-ch-hryny fashion and then on the skin in inverted interrupted fashion with 2-0 Vicryl. A ZipLine was then placed on the skin. The IT band was closed with 2-0 Vicryl in a kcpvkw-ms-dwclx fashion and then 2-0 Vicryl in inverted interrupted on the skin and a ZipLine on the skin. The proximal incision for the locking screw was irrigated as well and closed with 2-0 inverted interrupted and then 4-0 Monocryl in a horizontal mattress fashion. The incisions were then covered with Telfa and Tegaderm. The patient was awakened and taken to recovery in stable condition. BLOOD LOSS: Approximately 200 mL. COMPLICATIONS: None. TRANSINT:[id number] Voice Confirmation ID: [id number] DOCUMENT ID: [id number] OPERATIVE REPORT [id number] RORO GARLAND,LYRIC Crum DO at 1550 CC: [id number] DICTATION DATE: 06/13/18 1547 CASE FINISHING MACHINE ADJUSTER: 06/13/18 1904 ADM IN [facility] [address] [place] [address]
--- NOTE | ~2018-06-11 | MORECARE ---
CASE MANAGEMENT DISCHARGE SUMMARY PATIENT: RORO GARLAND UNIT: [id number] ADM DATE: 06/11/18 AGE: 48 : 74 SEX: M ROOM/BED: D.2136 AUTHOR: JOHN FIELD PHYSICIAN: REFERRING PHYSICIAN: ARIADNE BRAVO MD DATE OF SERVICE: 06/13/18 Discharge Plan Patient Name: RORO GARLAND Facility: [facility]:[place] : 1970 Planned Disposition: Nursing Facility [facility] Anticipated Discharge Date: 06/16/18 Discharge Date: Expected LOS: 5 Initial Reviewer: [id number] Initial Review Date: 06/13/2018 Generated: 06/13/18 10:14 am DCPIA - Discharge Planning Initial Assessment Updated by [email or web address]: Bebe Motley on 06/13/18 9:07 am * Is the patient Alert and Oriented? Yes * How many steps to enter\exit or inside your home? * PCP DR. DMITRI HERNANDEZ ([facility] [place]) * Pharmacy IN HOUSE * Preadmission Environment [facility] * Facility Name [facility] [phone] * ADLs Partial Dependent * Partial ADLs (Assistance needed) Bathing Dressing Medication Management Toileting Transfers * Equipment Glucometer Hospital Bed Wheelchair * Other Equipment FACILITY HAS EQUIPMENT NEEDED FOR PATIENT * List name and contact numbers for known caregivers / representatives who currently or will assist patient after discharge: ARIAS ([facility] [phone] * Verbal permission to speak to the caregivers and representatives has been obtained from the patient. Yes * Please name any agencies selected above. [facility] [place] [facility] * Additional services required to return to the preadmission environment? Yes * Can the patient safely return to the preadmission environment? Yes * Has this patient been hospitalized within the prior 30 days at any hospital? No Last DP export: 06/13/18 8:07 a Patient Name: RORO GARLAND Page 51278 at 0914 All edits/amendments must be made on the electronic document DICTATION DATE: 06/13/18913 MEAT SALES AND STORAGE MANAGER: SARIAT 06/13/18913 RPT#: [id number] DC DATE: STATUS: ADM IN [facility] [address] [place] [address] END OF REPORT
--- NOTE | ~2018-06-11 | MORECARE ---
CASE MANAGEMENT DISCHARGE SUMMARY PATIENT: RORO GARLAND UNIT: [id number] ADM DATE: 06/11/18 AGE: 48 : 74 SEX: M ROOM/BED: D.2136 AUTHOR: JOHN FIELD PHYSICIAN: REFERRING PHYSICIAN: ARIADNE BRAVO MD DATE OF SERVICE: 06/13/18 Discharge Plan Patient Name: RORO GARLAND Facility: [facility]:[place] : 1970 Planned Disposition: Nursing Facility [facility] Anticipated Discharge Date: 06/16/18 Discharge Date: Expected LOS: 5 Initial Reviewer: [email or web address] Initial Review Date: 06/13/2018 Generated: 06/13/18 10:07 am Patient Name: RORO GARLAND Page 24032 at 0907 All edits/amendments must be made on the electronic document DICTATION DATE: 06/13/18905 JOINERY MACHINIST: SARITA 06/13/18905 RPT#: [id number] DC DATE: STATUS: ADM IN [facility] [address] [place] [address] END OF REPORT
[~2018-06-11 22:45] MED LIST changes: +PLAVIX75 MG PO
[2018-06-12] VITALS (7 sets, daily range): BP systolic 147–190; BP diastolic 78–108; Ht 188 cm; Wt 75.5 kg
[2018-06-12] MEDS ORDERED: BAYER CHEWABLE81 MG PO (04:18)
[2018-06-12] MEDS ORDERED: FERRIC CITRATE210 MG PO (04:19)
[2018-06-12] MEDS ORDERED: CHANTIX0.5 MG PO (04:21)
[2018-06-12] MEDS ORDERED: FLUTICASONE PRO16 GM NASAL (04:25)
[2018-06-12] MEDS ORDERED: HUMULIN R100 U/ML SQ (04:26)
[2018-06-12] MEDS ORDERED: CHRONULAC30 ML PO (04:42)
[2018-06-12] MEDS ORDERED: CLOTRIM ANTIFUN15 GM TOPICAL (04:45)
[2018-06-12] MEDS ORDERED: OXYCODONE-APAP1 TAB PO (04:52)
[2018-06-12] MEDS ORDERED: PROTONIX20 MG PO (04:56)
[2018-06-12] MEDS ORDERED: TRAZODONE HCL100 MG PO (05:01)
[2018-06-12 07:19] LABS: BASOPHILS 0.4 % (0-2); HEMATOCRIT 30.1 % (42.0-54.0); HEMOGLOBIN 9.4 g/dL (13.5-17.5); IMMATURE GRANULOCYTES 0.3 % (0-5); LYMPHOCYTES 9.2 % (15-50); MCH 29.4 pg (26.0-34.0); MCHC 31.2 g/dL (31.0-37.0); MCV 94.1 fL (80.0-100.0); MEAN PLATELET VOLUME 11.1 fL (7.4-10.4); MONOCYTES 16.4 % (2-11); NEUTROPHILS 72.7 % (40-80); RDW 14.1 % (11.5-14.5); WBC 10.1 10x3/uL (4.8-10.8)
[2018-06-12 07:21] LABS: PLATELET COUNT 160 10x3/uL (130-400)
[2018-06-12 07:29] LABS: ANION GAP 19.5 mmol/L (8-16); CALCIUM 9.1 mg/dL (8.5-10.1); CARBON DIOXIDE 26.1 mmol/L (21.0-32.0); CREATININE - SERUM 10.4 mg/dL (0.6-1.3); POTASSIUM - SERUM 4.6 mmol/L (3.5-5.1)
[2018-06-13 00:30] VITALS: BP 153/79
[2018-06-13 05:33] VITALS: BP 155/88
[2018-06-13 08:12] VITALS: BP 144/77
[2018-06-13 10:20] LABS: HEP B CORE AB TOTAL Negative (Negative); HEPATITIS C ANTIBODY 0.4 S/CO RAT (0.0-0.9)
[2018-06-13 10:31] LABS: ANION GAP 21.8 mmol/L (8-16); CALCIUM 8.8 mg/dL (8.5-10.1); CARBON DIOXIDE 23.1 mmol/L (21.0-32.0); CREATININE - SERUM 11.6 mg/dL (0.6-1.3); POTASSIUM - SERUM 4.9 mmol/L (3.5-5.1)
[2018-06-13 10:34] LABS: BASOPHILS 0.4 % (0-2); EOSINOPHILS 1.4 % (0-7); HEMATOCRIT 26.9 % (42.0-54.0); HEMOGLOBIN 8.3 g/dL (13.5-17.5); IMMATURE GRANULOCYTES 0.4 % (0-5); LYMPHOCYTES 7.6 % (15-50); MCH 29.6 pg (26.0-34.0); MCHC 30.9 g/dL (31.0-37.0); MEAN PLATELET VOLUME 10.7 fL (7.4-10.4); MONOCYTES 13.9 % (2-11); NEUTROPHILS 76.3 % (40-80); PLATELET COUNT 147 10x3/uL (130-400); RDW 14.2 % (11.5-14.5); WBC 10.4 10x3/uL (4.8-10.8)
[2018-06-13 10:36] LABS: MCV 96.1 fL (80.0-100.0)
[2018-06-13 11:22] VITALS: BP 144/76
[2018-06-13 21:31] VITALS: BP 111/69
[2018-06-14 00:49] VITALS: BP 101/50
[2018-06-14 05:58] VITALS: BP 109/59
[2018-06-14 06:37] LABS: BASOPHILS 0.6 % (0-2); EOSINOPHILS 2.1 % (0-7); HEMATOCRIT 23.3 % (42.0-54.0); IMMATURE GRANULOCYTES 0.4 % (0-5); LYMPHOCYTES 17.1 % (15-50); MCHC 31.8 g/dL (31.0-37.0); MCV 94.3 fL (80.0-100.0); MEAN PLATELET VOLUME 10.7 fL (7.4-10.4); MONOCYTES 18.2 % (2-11); NEUTROPHILS 61.6 % (40-80); PLATELET COUNT 158 10x3/uL (130-400); RBC 2.47 10x6/uL (4.20-6.10); RDW 14.3 % (11.5-14.5)
[2018-06-14 06:45] LABS: ANION GAP 18.4 mmol/L (8-16); CALCIUM 8.2 mg/dL (8.5-10.1); CARBON DIOXIDE 25.3 mmol/L (21.0-32.0); CREATININE - SERUM 12.5 mg/dL (0.6-1.3); POTASSIUM - SERUM 4.7 mmol/L (3.5-5.1)
[2018-06-14 06:50] LABS: WBC 7.2 10x3/uL (4.8-10.8)
[2018-06-14 06:52] LABS: HEMOGLOBIN 7.4 g/dL (13.5-17.5)
[2018-06-14 11:31] VITALS: BP 94/53
[2018-06-14 19:00] VITALS: BP 127/58
[2018-06-15] VITALS (7 sets, daily range): BP systolic 93–124; BP diastolic 40–55
[2018-06-15 08:34] LABS: ANION GAP 26.9 mmol/L (8-16); CALCIUM 8.9 mg/dL (8.5-10.1); POTASSIUM - SERUM 4.4 mmol/L (3.5-5.1)
[2018-06-15 08:37] LABS: CARBON DIOXIDE 18.5 mmol/L (21.0-32.0); CREATININE - SERUM 7.5 mg/dL (0.6-1.3)
[2018-06-15 08:49] LABS: BASOPHILS 0.4 % (0-2); EOSINOPHILS 1.3 % (0-7); HEMATOCRIT 26.5 % (42.0-54.0); HEMOGLOBIN 8.2 g/dL (13.5-17.5); IMMATURE GRANULOCYTES 0.5 % (0-5); LYMPHOCYTES 16.6 % (15-50); MCH 29.4 pg (26.0-34.0); MCHC 30.9 g/dL (31.0-37.0); MEAN PLATELET VOLUME 10.4 fL (7.4-10.4); MONOCYTES 13.8 % (2-11); NEUTROPHILS 67.4 % (40-80); PLATELET COUNT 152 10x3/uL (130-400); RBC 2.79 10x6/uL (4.20-6.10); RDW 16.1 % (11.5-14.5); WBC 7.5 10x3/uL (4.8-10.8)
[2018-06-16 00:10] VITALS: BP 114/60
[2018-06-16 04:00] VITALS: BP 120/53
[2018-06-16 08:35] VITALS: BP 119/59
[2018-06-16 14:49] LABS: BASOPHILS 0.4 % (0-2); EOSINOPHILS 1.7 % (0-7); HEMATOCRIT 28.1 % (42.0-54.0); HEMOGLOBIN 9.2 g/dL (13.5-17.5); IMMATURE GRANULOCYTES 0.3 % (0-5); LYMPHOCYTES 8.9 % (15-50); MCH 29.9 pg (26.0-34.0); MCHC 32.7 g/dL (31.0-37.0); MEAN PLATELET VOLUME 9.6 fL (7.4-10.4); MONOCYTES 9.7 % (2-11); PLATELET COUNT 165 10x3/uL (130-400); RBC 3.08 10x6/uL (4.20-6.10); RDW 15.2 % (11.5-14.5)
[2018-06-16 14:51] LABS: MCV 91.2 fL (80.0-100.0)
[2018-06-16 14:59] LABS: CALCIUM 9.2 mg/dL (8.5-10.1)
[2018-06-16 15:02] LABS: ANION GAP 14.1 mmol/L (8-16); CARBON DIOXIDE 29.1 mmol/L (21.0-32.0); CREATININE - SERUM 4.8 mg/dL (0.6-1.3); POTASSIUM - SERUM 3.2 mmol/L (3.5-5.1)
[2018-06-16 17:19] VITALS: BP 141/70
[2018-06-16 20:00] VITALS: BP 162/64
[2018-06-17 00:06] VITALS: BP 150/68
[2018-06-17 04:00] VITALS: BP 149/66
[2018-06-17 06:53] LABS: BASOPHILS 0.3 % (0-2); EOSINOPHILS 2.6 % (0-7); HEMOGLOBIN 8.5 g/dL (13.5-17.5); IMMATURE GRANULOCYTES 0.3 % (0-5); LYMPHOCYTES 12.8 % (15-50); MCH 29.4 pg (26.0-34.0); MCHC 31.5 g/dL (31.0-37.0); MEAN PLATELET VOLUME 10.1 fL (7.4-10.4); MONOCYTES 10.1 % (2-11); NEUTROPHILS 73.9 % (40-80); PLATELET COUNT 148 10x3/uL (130-400); RBC 2.89 10x6/uL (4.20-6.10); RDW 15.3 % (11.5-14.5); WBC 7.8 10x3/uL (4.8-10.8)
[2018-06-17 06:55] VITALS: BP 119/59
[2018-06-17 06:56] LABS: MCV 93.4 fL (80.0-100.0)
[2018-06-17 07:06] LABS: CALCIUM 8.1 mg/dL (8.5-10.1); CREATININE - SERUM 5.8 mg/dL (0.6-1.3)
[2018-06-17 07:11] LABS: ANION GAP 25.5 mmol/L (8-16); CARBON DIOXIDE 20.5 mmol/L (21.0-32.0)
[2018-06-17 08:44] VITALS: BP 112/63
[2018-06-17 12:09] VITALS: BP 118/69
[2018-06-17 20:30] VITALS: BP 124/63
[2018-06-18 00:30] VITALS: BP 115/62
[2018-06-18 04:30] VITALS: BP 105/61
[2018-06-18 06:50] LABS: BASOPHILS 0.4 % (0-2); EOSINOPHILS 3.9 % (0-7); HEMATOCRIT 26.5 % (42.0-54.0); HEMOGLOBIN 8.3 g/dL (13.5-17.5); IMMATURE GRANULOCYTES 0.9 % (0-5); LYMPHOCYTES 13.9 % (15-50); MCH 29.4 pg (26.0-34.0); MCHC 31.3 g/dL (31.0-37.0); MEAN PLATELET VOLUME 10.3 fL (7.4-10.4); MONOCYTES 11.5 % (2-11); NEUTROPHILS 69.4 % (40-80); PLATELET COUNT 148 10x3/uL (130-400); RBC 2.82 10x6/uL (4.20-6.10); RDW 14.7 % (11.5-14.5); WBC 7.5 10x3/uL (4.8-10.8)
[2018-06-18 07:06] LABS: ANION GAP 26.2 mmol/L (8-16); CALCIUM 8.4 mg/dL (8.5-10.1); CARBON DIOXIDE 21.2 mmol/L (21.0-32.0); POTASSIUM - SERUM 4.4 mmol/L (3.5-5.1)
[2018-06-18 07:11] LABS: CREATININE - SERUM 7.3 mg/dL (0.6-1.3)
[2018-06-18 15:00] VITALS: BP 113/62
== END 2018-06-18 21:22 | DRG 252 ==
LOC: D.M2 22:45
PROVIDERS: Internal Medicine Nephrology; Orthopaedic Surgery; Surgery
PROC: 5A1D70Z Performance of Urinary Filtration, Intermittent, Less than 6 Hours Per Day (ICD-10-PCS; 2018-06-13)
PROC: 0QS906Z Reposition Left Femoral Shaft with Intramedullary Internal Fixation Device, Open Approach (ICD-10-PCS; principal; 2018-06-13 10:00)
PROC: 03CY3ZZ Extirpation of Matter from Upper Artery, Percutaneous Approach (ICD-10-PCS; 2018-06-14 07:30)
PROC: 037Y3DZ Dilation of Upper Artery with Intraluminal Device, Percutaneous Approach (ICD-10-PCS; 2018-06-14 07:30)
PROC: 04HK33Z Insertion of Infusion Device into Right Femoral Artery, Percutaneous Approach (ICD-10-PCS; 2018-06-14 07:30)
DX: T82.868A Thrombosis due to vascular prosthetic devices, implants and grafts, initial encounter (principal); S72.302A Unspecified fracture of shaft of left femur, initial encounter for closed fracture; N18.6 End stage renal disease; I12.0 Hypertensive chronic kidney disease with stage 5 chronic kidney disease or end stage renal disease; X58.XXXA Exposure to other specified factors, initial encounter; I25.10 Atherosclerotic heart disease of native coronary artery without angina pectoris; E11.22 Type 2 diabetes mellitus with diabetic chronic kidney disease; Z99.2 Dependence on renal dialysis; I48.91 Unspecified atrial fibrillation; E78.5 Hyperlipidemia, unspecified; D63.1 Anemia in chronic kidney disease; Y83.8 Other surgical procedures as the cause of abnormal reaction of the patient, or of later complication, without mention of misadventure at the time of the procedure; W06.XXXA Fall from bed, initial encounter; E11.51 Type 2 diabetes mellitus with diabetic peripheral angiopathy without gangrene; B19.20 Unspecified viral hepatitis C without hepatic coma; Z89.611 Acquired absence of right leg above knee; Z95.5 Presence of coronary angioplasty implant and graft; Z86.73 Personal history of transient ischemic attack (TIA), and cerebral infarction without residual deficits; Z72.0 Tobacco use

== ENCOUNTER 2018-10-05 14:12 | Observation (INO) | payer MEDICARE ==
[~2018-10-05] VITALS: Ht 182.9 cm; Wt 69.8 kg
[~2018-10-05 14:12] MED LIST changes: +BAYER CHEWABLE81 MG PO; +CHANTIX0.5 MG PO; +CHRONULAC30 ML PO; +CLOTRIM ANTIFUN15 GM TOPICAL; +FLUTICASONE PRO16 GM NASAL; +HUMULIN R100 U/ML SQ; +OXYCODONE-APAP1 TAB PO; +PROTONIX20 MG PO; +TRAZODONE HCL100 MG PO
[2018-10-05 15:14] LABS: BASOPHILS 1.4 % (0-2); EOSINOPHILS 2.8 % (0-7); HEMATOCRIT 42.1 % (42.0-54.0); HEMOGLOBIN 13.6 g/dL (13.5-17.5); IMMATURE GRANULOCYTES 0.2 % (0-5); LYMPHOCYTES 32.6 % (15-50); MCH 28.6 pg (26.0-34.0); MCHC 32.3 g/dL (31.0-37.0); MCV 88.6 fL (80.0-100.0); MEAN PLATELET VOLUME 10.6 fL (7.4-10.4); MONOCYTES 11.3 % (2-11); NEUTROPHILS 51.7 % (40-80); PLATELET COUNT 139 10x3/uL (130-400); RBC 4.75 10x6/uL (4.20-6.10); RDW 14.6 % (11.5-14.5); WBC 5.8 10x3/uL (4.8-10.8)
[2018-10-05 15:30] LABS: INR 1.12 (0.85-1.17); PROTIME 13.9 SECONDS (11.6-15.0)
[2018-10-05 15:35] LABS: ANION GAP 16.6 mmol/L (8-16); CALCIUM 9.4 mg/dL (8.5-10.1); CARBON DIOXIDE 25.1 mmol/L (21.0-32.0); CREATININE - SERUM 7.2 mg/dL (0.6-1.3); POTASSIUM - SERUM 4.7 mmol/L (3.5-5.1)
[2018-10-05] MEDS ORDERED: FERRIC CITRATE210 MG PO (15:36)
[2018-10-05 15:44] VITALS: BMI 23.5
--- NOTE | 2018-10-05 20:23 | NUR ---
2002 - HEPARIN GTT INITIATED AT 1000/UNITS PER HOUR. WITNESSED BY JULIA WYATT RN.
--- NOTE | 2018-10-05 20:30 | NUR ---
PT ARRIVED BY JOE FROM [facility]. PT IS ALERT AND ORIENT X 3. PT HAS A RT GROIN CVL. A HEPARIN DRIP INFUSING 100O UNITS PER HOUR. AND NORMAL SALINE INFUSING AT 10 KVO. BED IN LOW POSITION WITH CALL LIGHT IN REACH. WILL CONTINUE TO MONITOR PT AND FOLLOW PLAN OF CARE.
[2018-10-05 21:16] LABS: HEMATOCRIT 41.9 % (42.0-54.0); HEMOGLOBIN 13.8 g/dL (13.5-17.5); MCH 29.1 pg (26.0-34.0); MCHC 32.9 g/dL (31.0-37.0); MCV 88.4 fL (80.0-100.0); MEAN PLATELET VOLUME 10.6 fL (7.4-10.4); RBC 4.74 10x6/uL (4.20-6.10); RDW 14.4 % (11.5-14.5); WBC 5.1 10x3/uL (4.8-10.8)
[2018-10-05 21:22] LABS: INR 1.16 (0.85-1.17); PROTIME 14.3 SECONDS (11.6-15.0)
--- NOTE | 2018-10-05 21:52 | NUR ---
PT PTT WAS 183.7 DR REYES WAS CALLED AND NOTIFIED. PER ORDER TO DECREASE HEPARIN DRIP TO [address] REYES FOR HEPARIN TO CONTINUE TO INFUSE.
[2018-10-05 22:24] LABS: APTT 183.7 SECONDS (22.8-39.4)
--- NOTE | 2018-10-06 01:45 | NUR ---
ADMIT ASSESSMENT COMPLETE. PT IS AAO, HEPARIN INFUSING AT 800 UNITS PER HOUR. TO RIGHT GROIN SVL. GROIN CVL IS BLOODY, HAS BLOOD CLOTS. LEFT DRSG BUT APPLIED NEW GAUZE FOR A PRESSURE DRSG. RIGHT AKA SCARS NOTED ON LEG, ABDOMEN AND ARMS LEFT AVF BRUIT AND THRILL NOTED. S1S2 RRR LUNGS CLEAR. ABDOMEN FLAT. SOFT. PT DENIES ANY NEEDS. DENIES ANY PAIN AT THIS TIME. NO S/S OF DISTRESS. BEDLOW AND CALL LIGHT IN REACH. WILL CPOC
[2018-10-06 03:39] VITALS: BP 148/90; BMI 23.3
--- NOTE | 2018-10-06 06:10 | NUR ---
PT STATES HIS SUGAR IS LOW. BLOOD SUGAR CHECKED AND IT WAS 59. PT STATED HE DID NOT WANT TO TAKE D50. PT ASK FOR A SPRITE AND SOME GRAMCRACKER. REFUSED HYPOGLYCEMIC PROTOCOL.
[2018-10-06 06:30] LABS: BASOPHILS 1.4 % (0-2); EOSINOPHILS 2.1 % (0-7); HEMATOCRIT 39.4 % (42.0-54.0); HEMOGLOBIN 12.8 g/dL (13.5-17.5); IMMATURE GRANULOCYTES 0.3 % (0-5); MCH 28.7 pg (26.0-34.0); MCHC 32.5 g/dL (31.0-37.0); MCV 88.3 fL (80.0-100.0); MEAN PLATELET VOLUME 10.9 fL (7.4-10.4); MONOCYTES 11.8 % (2-11); NEUTROPHILS 43.4 % (40-80); RBC 4.46 10x6/uL (4.20-6.10); RDW 14.7 % (11.5-14.5)
[2018-10-06 06:31] LABS: PLATELET COUNT 187 10x3/uL (130-400); WBC 7.7 10x3/uL (4.8-10.8)
[2018-10-06 06:49] LABS: CARBON DIOXIDE 21.2 mmol/L (21.0-32.0); CREATININE - SERUM 7.7 mg/dL (0.6-1.3); POTASSIUM - SERUM 4.2 mmol/L (3.5-5.1)
--- NOTE | 2018-10-06 07:17 | NUR ---
PT ASLEEP, DID NOT WAKE I ENTERED. CL IN REACH. SRX2. DID NOT FURTHER DISTURB AT THIS TIME.
--- NOTE | 2018-10-06 07:18 | NUR ---
NURSE PRACTIONER EDGAR DURAND WAS CALLED AND TOLD ABOUT THE ORDER DR. REYES WANTED PT TO DIALYIZE LAST NIGHT BUT PER NURSE PRACTIONER EDGAR DURAND PT WILL DIALIZE TODAY. DR. REYES WAS CALLED AND TOLD.
[2018-10-06 08:43] VITALS: BP 98/59
[2018-10-06 11:54] VITALS: BP 117/72
[2018-10-06 12:00] VITALS: Ht 182.9 cm; Wt 69.8 kg
--- NOTE | 2018-10-06 14:24 | NUR ---
I have reviewed this patient and I concur with the Shift Assessment completed by the Licensed Practical Nurse today this shift.
[2018-10-06 16:46] VITALS: BP 121/77
--- NOTE | 2018-10-06 18:41 | NUR ---
PT STILL WAITING ON DIAYLISIS. NO WORD OF YET, EXCEPT THAT IT OWULD BE DONE AFTER SUPPER.
--- NOTE | 2018-10-06 20:09 | NUR ---
INITIAL ROUNDS COMPLETED AT 1910 HRS. PT TENDER AT R GROIN TL SITE. LIGHT OOZE NOTED. SANDBAG OVER SITE. ASSESSMENT COMPLETED AT 1940 HRS. PT ALERT AND ORIENTED TO PERSON, PLACE AND TIME. ANGELICA. OLD R KADEN NOTED. HEPARIN AT 800U/HR TO BLUE PORT OR R GROIN TL. NS AT 10CC/HR TO BROWN PORT. LUNGS CTA. L ARM HERO GRAFT WITH FAINT THRILL AND BRUIT PER STETHOSCOPE. 2 LITE BAG OF NS PULLED FOR DIALYSIS PER THEIR REQUEST. PT TO DIALYSIS AT 1950 HRS.
[2018-10-07 00:30] VITALS: BP 110/68
--- NOTE | 2018-10-07 00:40 | NUR ---
PT BACK FOR M DIALYSIS AT 2345 HRS. GOOD BRUIT AND THRILL NOTED TO L HERO GRAFT. VSS. DR REYES CALLED PER INSTRUCTIONS AND INFORMED OF SUCCESSFUL DIALYSIS. NEW ORDER RECEIVED AND NOTED. HEPARIN DRIP DC'D AT 2359 HRS. FSBS 149. NO COVERAGE NEEDED. PM MEDS GIVEN. DRESSING TO R GROIN SATURATED. DC'D USING STERILE TECHNIQUE. NEW PRESSURE DRESSING APPLIED TO R GROIN AREA. R GROIN TL FLUSHED WITH SALINE WITHOUT DIFFICULTIES. SR UP X2, CALL LIGHT WITHIN REACH.
--- NOTE | 2018-10-07 01:52 | NUR ---
R GROIN DRESSING CLEAN,DRY AND INTACT. PT RESTING WITH EYES CLOSED. RESP EVEN AND REGULAR. SRUP X2, CALL LIGHT WITHIN REACH.
--- NOTE | 2018-10-07 04:13 | NUR ---
PT RESTING WITH EYES CLOSED. RESP EVEN AND REGULAR. SR UP X2, CALL LIGHT WITHIN REACH.
[2018-10-07 04:30] VITALS: BP 104/63
[2018-10-07 04:57] LABS: BASOPHILS 1.7 % (0-2); EOSINOPHILS 2.8 % (0-7); HEMATOCRIT 34.7 % (42.0-54.0); IMMATURE GRANULOCYTES 0.2 % (0-5); LYMPHOCYTES 30.5 % (15-50); MCH 28.4 pg (26.0-34.0); MCHC 31.7 g/dL (31.0-37.0); MCV 89.7 fL (80.0-100.0); MEAN PLATELET VOLUME 10.6 fL (7.4-10.4); MONOCYTES 10.8 % (2-11); RBC 3.87 10x6/uL (4.20-6.10); RDW 15.2 % (11.5-14.5)
[2018-10-07 05:18] LABS: PLATELET COUNT 125 10x3/uL (130-400); WBC 4.7 10x3/uL (4.8-10.8)
[2018-10-07 05:35] LABS: ANION GAP 10.5 mmol/L (8-16); CALCIUM 8.7 mg/dL (8.5-10.1); CARBON DIOXIDE 26.2 mmol/L (21.0-32.0); POTASSIUM - SERUM 3.7 mmol/L (3.5-5.1)
[2018-10-07 05:40] LABS: CREATININE - SERUM 5.4 mg/dL (0.6-1.3)
--- NOTE | 2018-10-07 06:29 | NUR ---
VSS. NO OOZING FROM R GROIN NOTED AT THIS TIME. AM FSBS 204. PT REFUSED INSULIN. AM MEDS GIVEN. NEEDS MET; WILL CONTINUE TO MONITOR.
--- NOTE | 2018-10-07 07:23 | NUR ---
PT LYING IN BED, HAT OVER EYES. WOKE EASILY TO VERBAL STIMULI. NO CONCERNS/COMPLAINTS AT THIS TIME. READY TO GO HOME. CL IN REACH. SRX2.
[2018-10-07 08:30] VITALS: BP 99/62
--- NOTE | 2018-10-07 10:59 | NUR ---
I have reviewed this patient and I concur with the Shift Assessment completed by the Licensed Practical Nurse today this shift.
--- NOTE | 2018-10-07 11:02 | NUR ---
PT BEING DISCHARGED. RN TO PULL CENTRAL LINE. EXPLAINED PROCESS TO PT IN DETAIL AND HE VERBALIZED UNDERSTANDING AND DENIES ANY QUESTIONS OR CONCERNS. REMOVED DRSG AND CLEANSED OFF BLOOD CLOTS TO SEE INSERTION SITE. D/C 1 SUTURE HOLDING IT DOWN THEN REMOVED WITH CATHETER TIP FULLY INTACT. HELD PRESSURE AND PLACED GAUZE WITH TEGADERM. NO S/S OF ANY BLEEDING OR HEMATOMA NOTED. PT WILL LAY FLAT FOR 10MINS AND VERBALIZED UNDERSTANDING. DISCUSSED WITH PRIMARY NURSE KENDRA MEDINA. NO FURTHER NEEDS.
--- NOTE | 2018-10-07 12:45 | MORECARE ---
CASE MANAGEMENT DISCHARGE SUMMARY PATIENT: RORO GARLAND UNIT: [id number] ADM DATE: 10/05/18 AGE: 48 : 74 SEX: M ROOM/BED: D.2104 AUTHOR: JOHN FIELD PHYSICIAN: REFERRING PHYSICIAN: LYRIC ARIAS MD DATE OF SERVICE: 10/07/18 Discharge Plan Patient Name: RORO GARLAND [facility] [facility] 1970 Planned Disposition: [facility] Anticipated Discharge Date: 10/07/18 Discharge Date: Expected LOS: 2 Initial Reviewer: [email or web address] Initial Review Date: 10/05/2018 Generated: 10/07/18 1:45 pm Comments DCP- Discharge Planning Updated by [email or web address]: Jonna Miller on 10/06/18 3:[address] PATIENT HAS NOT BEEN DIALYZED SINCE MONDAY. MUST HAVE HD TODAY. DIALYSIS CANNOT DIALYZE HIM UNTIL AFTER DINNER TODAY. LIKELY WILL BE DISCHARGE TOMORROW DIALYSIS WILL NOT BE COMPLETED UNTIL LATE. WAS KEPT OVERNIGHT BECAUSE HE WAS ON A HEPARIN DRIP TO HELP WITH PERFUSION TO HIS HAND. CONTINUES WITH HEP DRIP. Patient Name: RORO GARLAND Page [phone] at 1245 All edits/amendments must be made on the electronic document DICTATION DATE: 10/07/18 1244 TIRE CORD WEAVER: DM 10/07/18 1244 RPT#: [id number] DC DATE: STATUS: ADM IN [facility] [address] [place] [address] END OF REPORT
--- NOTE | 2018-10-07 12:57 | MORECARE ---
CASE MANAGEMENT DISCHARGE SUMMARY PATIENT: RORO GARLAND UNIT: [id number] ADM DATE: 10/05/18 AGE: 48 : 74 SEX: M ROOM/BED: D.2104 AUTHOR: EMIR,DOC PHYSICIAN: REFERRING PHYSICIAN: LYRIC ARIAS MD DATE OF SERVICE: 10/07/18 Discharge Plan Patient Name: RORO GARLAND Facility: [facility]:[place] : 1970 Planned Disposition: Senior Care Care Fac MCR Anticipated Discharge Date: 10/07/18 Discharge Date: Expected LOS: 2 Initial Reviewer: [email or web address] Initial Review Date: 10/05/2018 Generated: 10/07/18 1:57 pm Comments DCP- Discharge Planning Updated by [email or web address]: Jonna Miller on 10/06/18 3:[address] PATIENT HAS NOT BEEN DIALYZED SINCE MONDAY. MUST HAVE HD TODAY. DIALYSIS CANNOT DIALYZE HIM UNTIL AFTER DINNER TODAY. LIKELY WILL BE DISCHARGE TOMORROW DIALYSIS WILL NOT BE COMPLETED UNTIL LATE. WAS KEPT OVERNIGHT BECAUSE HE WAS ON A HEPARIN DRIP TO HELP WITH PERFUSION TO HIS HAND. CONTINUES WITH HEP DRIP. DCPIA - Discharge Planning Initial Assessment Updated by [email or web address]: Jonna Miller on 10/07/18 12:53 pm * Is the patient Alert and Oriented? Yes * How many steps to enter\exit or inside your home? * PCP RICHARD BAH * Pharmacy [facility] [place] * Preadmission Environment Professional Fee Coder [employer] * Facility Name [facility] IN [place], [place] * Partial ADLs (Assistance needed) Bathing Dressing Eating Transfers * Equipment Wheelchair * List name and contact numbers for known caregivers / representatives who currently or will assist patient after discharge: JONAH GARLAND- - [phone] * Verbal permission to speak to the caregivers and representatives has been obtained from the patient. No * Please name any agencies selected above. N/A * Additional services required to return to the preadmission environment? No * Can the patient safely return to the preadmission environment? Yes * Has this patient been hospitalized within the prior 30 days at any hospital? No Last DP export: 10/07/18 11:45 am Patient Name: RORO GARLAND Page 16394 at 1257 All edits/amendments must be made on the electronic document DICTATION DATE: 10/07/18 1257 SLEEP TECHNICIAN: SARITA 10/07/18 1257 RPT#: [id number] DC DATE: STATUS: ADM IN [facility] [address] [place] [address] END OF REPORT
--- NOTE | 2018-10-07 13:04 | MORECARE ---
CASE MANAGEMENT DISCHARGE SUMMARY PATIENT: RORO GARLAND UNIT: [id number] ADM DATE: 10/05/18 AGE: 48 : 74 SEX: M ROOM/BED: D.2107 AUTHOR: EMIR,DOC PHYSICIAN: REFERRING PHYSICIAN: LYRIC ARIAS MD DATE OF SERVICE: 10/07/18 Discharge Plan Patient Name: RORO GARLAND Facility: [facility]:[place] : 1970 Planned Disposition: [facility]sp Care Fac MCR Anticipated Discharge Date: 10/07/18 Discharge Date: Expected LOS: 2 Initial Reviewer: [email or web address] Initial Review Date: 10/05/2018 Generated: 10/07/18 2:04 pm Comments DCP- Discharge Planning Updated by [email or web address]: Jonna Miller on 10/07/18 11:[address] PATIENT FOR DISCHARGE TODAY. WILL BE DISCHARGED TO [facility]. TC TO FACILITY. SPOKE WITH DIEGO AT [phone]. FAXED H/P, OPERATIVE REPORT, RENAL NOTE AND DISCHARGE SUMMARY TO [phone]. PRIMARY NURSE TO FAX DISCHARGE MED LIST. CM RECEIVED INFORMATION REGARDING TRANSPORTATION. PATIENT WILL BE TRANSPORTED AT 1600 TODAY. ADVISE PRIMARY NURSE. SHE WILL CALL REPORT. DCP- Discharge Planning Updated by [id number]: Jonna Miller on 10/06/18 3:[address] PATIENT HAS NOT BEEN DIALYZED SINCE MONDAY. MUST HAVE HD TODAY. DIALYSIS CANNOT DIALYZE HIM UNTIL AFTER DINNER TODAY. LIKELY WILL BE DISCHARGE TOMORROW DIALYSIS WILL NOT BE COMPLETED UNTIL LATE. WAS KEPT OVERNIGHT BECAUSE HE WAS ON A HEPARIN DRIP TO HELP WITH PERFUSION TO HIS HAND. CONTINUES WITH HEP DRIP. DCPIA - Discharge Planning Initial Assessment Updated by [id number]: Jonna Miller on 10/07/18 12:53 pm * Is the patient Alert and Oriented? Yes * How many steps to enter\exit or inside your home? * PCP RICHARD BHA * Pharmacy [facility] [place] * Preadmission Environment Fiction And Nonfiction Author Skilled Nursing * Facility Name [facility] [place], [place] * Partial ADLs (Assistance needed) Bathing Dressing Eating Transfers * Equipment Wheelchair * List name and contact numbers for known caregivers / representatives who currently or will assist patient after discharge: JONAH GARLAND- - [phone] * Verbal permission to speak to the caregivers and representatives has been obtained from the patient. No * Please name any agencies selected above. N/A * Additional services required to return to the preadmission environment? No * Can the patient safely return to the preadmission environment? Yes * Has this patient been hospitalized within the prior 30 days at any hospital? No Last DP export: 10/07/18 11:57 am Patient Name: RORO GARLAND Page 13339 at 1304 All edits/amendments must be made on the electronic document DICTATION DATE: 10/07/18 1304 DIRECT MARKETING EXECUTIVE: SARITA 10/07/18 1304 RPT#: [id number] DC DATE: STATUS: ADM IN [facility] [address] [place] [address] END OF REPORT
--- NOTE | 2018-10-07 16:24 | NUR ---
PT GOT SELF TO WHEELCHAIR, ESCORTED OUT WITH SHELTER STAFF TO [place]. NO CONCERNS/COMPLAINTS.
--- NOTE | 2018-10-08 08:31 | MORECARE ---
CASE MANAGEMENT DISCHARGE SUMMARY PATIENT: RORO GARLAND UNIT: [id number] ADM DATE: 10/05/18 AGE: 48 : 74 SEX: M ROOM/BED: D.2103 AUTHOR: EMIR,DOC PHYSICIAN: REFERRING PHYSICIAN: LYRIC ARIAS MD DATE OF SERVICE: 10/08/18 Discharge Plan Patient Name: RORO GARLAND Facility: [facility]:[place] : 1970 Planned Disposition: Jail Facility Anticipated Discharge Date: 10/07/18 Discharge Date: 10/07/2018 Expected LOS: 2 Initial Reviewer: [email or web address] Initial Review Date: 10/05/2018 Generated: 10/08/18 9:31 am Comments DCP- Discharge Planning Updated by [email or web address]: Jonna Miller on 10/07/18 11:[address] PATIENT FOR DISCHARGE TODAY. WILL BE DISCHARGED TO [facility]. TC TO FACILITY. SPOKE WITH DIEGO AT [phone]. FAXED H/P, OPERATIVE REPORT, RENAL NOTE AND DISCHARGE SUMMARY TO [phone]. PRIMARY NURSE TO FAX DISCHARGE MED LIST. CM RECEIVED INFORMATION REGARDING TRANSPORTATION. PATIENT WILL BE TRANSPORTED AT 1600 TODAY. ADVISE PRIMARY NURSE. SHE WILL CALL REPORT. DCP- Discharge Planning Updated by [id number]: Jonna Miller on 10/06/18 3:[address] PATIENT HAS NOT BEEN DIALYZED SINCE MONDAY. MUST HAVE HD TODAY. DIALYSIS CANNOT DIALYZE HIM UNTIL AFTER DINNER TODAY. LIKELY WILL BE DISCHARGE TOMORROW DIALYSIS WILL NOT BE COMPLETED UNTIL LATE. WAS KEPT OVERNIGHT BECAUSE HE WAS ON A HEPARIN DRIP TO HELP WITH PERFUSION TO HIS HAND. CONTINUES WITH HEP DRIP. DCPIA - Discharge Planning Initial Assessment Updated by [email or web address]: Jonna Miller on 10/07/18 12:53 pm * Is the patient Alert and Oriented? Yes * How many steps to enter\exit or inside your home? * PCP RICHARD BAH * Pharmacy [facility] [place] * Preadmission Environment [employer] * Facility Name [facility] [place] [place] * Partial ADLs (Assistance needed) Bathing Dressing Eating Transfers * Equipment Wheelchair * List name and contact numbers for known caregivers / representatives who currently or will assist patient after discharge: JONAH GARLAND- - [phone] * Verbal permission to speak to the caregivers and representatives has been obtained from the patient. No * Please name any agencies selected above. N/A * Additional services required to return to the preadmission environment? No * Can the patient safely return to the preadmission environment? Yes * Has this patient been hospitalized within the prior 30 days at any hospital? No Last DP export: 10/07/18 12:04 pm Patient Name: RORO GARLAND Page 07197 at 0831 All edits/amendments must be made on the electronic document DICTATION DATE: 10/08/18830 SECTION CHIEF: SARITA 10/08/18830 RPT#: [id number] DC DATE:10/07/18 STATUS: DIS IN [facility] [address] [place] [address] END OF REPORT
== END 2018-10-07 16:24 ==
LOC: D.OPS 14:12 → D.M2 19:42 → OBSVTIME 19:42 → D.M2 10-07 16:24
PROVIDERS: Surgery; ADMIT Internal Medicine Nephrology; ATTEND Internal Medicine Nephrology
DX: T82.868A Thrombosis due to vascular prosthetic devices, implants and grafts, initial encounter (principal); Y83.8 Other surgical procedures as the cause of abnormal reaction of the patient, or of later complication, without mention of misadventure at the time of the procedure; E11.22 Type 2 diabetes mellitus with diabetic chronic kidney disease; I12.0 Hypertensive chronic kidney disease with stage 5 chronic kidney disease or end stage renal disease; N18.6 End stage renal disease; Z99.2 Dependence on renal dialysis; Z86.73 Personal history of transient ischemic attack (TIA), and cerebral infarction without residual deficits; I48.91 Unspecified atrial fibrillation; E11.51 Type 2 diabetes mellitus with diabetic peripheral angiopathy without gangrene; J44.9 Chronic obstructive pulmonary disease, unspecified; F32.9 Major depressive disorder, single episode, unspecified; F41.9 Anxiety disorder, unspecified

== ENCOUNTER 2018-11-13 07:21 | Day surgery (SDC) | payer MEDICARE ==
[~2018-11-13] VITALS: Ht 188 cm; Wt 68.2 kg
--- NOTE | ~2018-11-13 | OP ---
PATIENT NAME: RORO GARLAND MEDICAL RECORD: [id number] :[birth year] LOCATION:D. D.2109 ADMISSION DATE: SURGEON: MARVIN REYES MD DATE OF OPERATION: 11/13/2018 REFERRING PHYSICIAN: Dr. Abraham of [place] and the [facility]. PREOPERATIVE DIAGNOSES: End-stage renal disease, dependence on hemodialysis and mechanical breakdown of left arm AV graft and other complication of left arm AV graft. Also, diabetes, peripheral artery disease, and smoking abuse syndrome. POSTOPERATIVE DIAGNOSES: End-stage renal disease, dependence on hemodialysis and mechanical breakdown of left arm AV graft and other complication of left arm AV graft. Also, diabetes, peripheral artery disease, and smoking abuse syndrome. OPERATION PERFORMED: Open revision without thrombectomy of HeRO AV graft in the left upper extremity. Replacing the Acuseal PTFE segment with a new "jump graft" of Acuseal. SURGEON: Marvin Reyes MD ANESTHESIA: General with LMA per PHARMACEUTICAL OFFICER. PREOPERATIVE NOTE: Mr. Garland is a 48-year-old white male with end-stage renal disease, on chronic hemodialysis. He has some degree of thrombophilia and has had numerous prior dialysis access failures. He has been dialyzing successfully for some time now with a left upper extremity HeRO graft, although he has had couple of thrombotic episodes and has had significant deterioration of the Acuseal graft from repeated needle punctures. When I last performed a declot procedure on October 05, I planned at that time that he should return for an elective revision and he is here for that today. DESCRIPTION OF PROCEDURE: Under general anesthesia in supine position, the patient's left arm was prepped and draped in sterile manner. An incision was made over the deltopectoral groove and the HeRO connector junction with the PTFE was exposed and freed from the surrounding tissues. An incision was made on the medial aspect of the arm and the Acuseal juxta-anastomotic segment just distal to the arterial anastomosis was exposed and freed from the surrounding tissues. A counterincision was made just above the antecubital space and a tunnel created between these 3 incisions. I chose a 6-mm diameter Acuseal graft and placed it in a subcutaneous tunnel from the deltopectoral groove to the medial arm incision. The graft and HeRO outflow device were clamped and the connector and a portion of the old Acuseal graft were then excised a new row repair kit connector was used then to attach the new Acuseal graft to the existing venous outflow device without changing that position. The connector segment was held, fixed to the pectoral fascia with interrupted 2-0 Prolene suture. The graft was pulled through the subcutaneous tunnel with care to keep it from twisting and it was positioned immediately, very superficially beneath the skin, so that it would be sure to be able to be accessed easily. The juxta-anastomotic segment was clamped and transected. Some thrombus was removed from the maldonado of that segment and the graft was cut back until a nice clean wall lumen was noted. It was then aspirated and then flushed with heparinized saline and clamped. The patient was given 2000 units of heparin systemically as well. The new graft OPERATIVE REPORT [id number] RORO GARLAND segment was shortened and it was anastomosed end-to-end, end of new Acuseal graft to end of old Acuseal graft with running 6-0 Prolene. When that suture line was completed, this anastomosis was further sealed with BioGlue and after 2 minutes of observation for the glue to cure, clamps were released and immediate excellent flow developed in the AV graft and there was no bleeding. The patient's heparin was partially reversed with 10 mg of protamine. The wounds were irrigated with Ancef and gentamicin solution, infiltrated with 0.25% Marcaine without epinephrine and closed with interrupted inverted 3-0 Vicryl and running intracuticular 4-0 Monocryl and Dermabond glue. The incisions were dressed with Maxorb Ag, Tegaderm, and Cavilon skin prep and the patient awakened and taken to the recovery room. Note: Doppler examination in the OR demonstrated a damped radial artery pulse before and after the new graft was placed. I could not detect an ulnar artery flow signal. The hand remains pink and does not appear to be ischemic. I think this is his baseline at least from the last operation. PLAN: Plan for this patient to remain in the hospital in overnight observation and have dialysis tomorrow. I think it is important that he have that dialysis done here tomorrow as it will be the initial access of his new Acuseal graft and only 1 day postop. If that is successful and there are no complications, then he probably could go home after that if transportations available for him to get all the way back to [facility]. He will continue with his same medications, diet, activities and his routine dialysis schedule in [place]. He will follow up with me in my office in about 2 weeks. The initial operative dressings can be removed at dialysis in [place] next week and then redressed with light dry gauze dressings as needed. Blood loss during this operation was about 10 cc, none was replaced. Sponges, instruments, and needles were accounted for. No drain was used and no surgical specimen was submitted for histopathology. TRANSINT:[id number] Voice Confirmation ID: [id number] DOCUMENT ID: [id number] cc: [facility]. MARVIN REYES MD CC: JERROD ABRAHAM MD [id number] DICTATION DATE: 11/13/18 1316 CLAIMS SPECIALIST: 11/13/18 1420 [facility] [address] [place] [id number]
[2018-11-13 07:58] LABS: BASOPHILS 0.7 % (0-2); EOSINOPHILS 3.5 % (0-7); HEMATOCRIT 37.5 % (42.0-54.0); IMMATURE GRANULOCYTES 0.3 % (0-5); LYMPHOCYTES 24.4 % (15-50); MCH 28.9 pg (26.0-34.0); MCV 90.4 fL (80.0-100.0); MEAN PLATELET VOLUME 10.7 fL (7.4-10.4); MONOCYTES 11.4 % (2-11); NEUTROPHILS 59.7 % (40-80); PLATELET COUNT 122 10x3/uL (130-400); RBC 4.15 10x6/uL (4.20-6.10); RDW 14.7 % (11.5-14.5)
[2018-11-13] MEDS ORDERED: FERRIC CITRATE210 MG PO (08:23)
[2018-11-13] MEDS ORDERED: HUMULIN R100 U/ML SC (08:25)
[2018-11-13 08:27] LABS: INR 1.07 (0.85-1.17); PROTIME 13.4 SECONDS (11.6-15.0)
[2018-11-13] MEDS ORDERED: ROBAXIN500 MG PO (08:28)
[2018-11-13 08:33] VITALS: BMI 19.3
[2018-11-13 08:49] LABS: ANION GAP 13.6 mmol/L (8-16); CALCIUM 8.7 mg/dL (8.5-10.1); CARBON DIOXIDE 25.9 mmol/L (21.0-32.0); CREATININE - SERUM 4.9 mg/dL (0.6-1.3); POTASSIUM - SERUM 3.5 mmol/L (3.5-5.1)
--- NOTE | 2018-11-13 13:00 | NUR ---
1300 - PT MEETS D/C CRITERIA, NO BED AVAILABLE ON MED II. SWITCHING TO PHASE 2 PROTOCOL PENDING DISPOSITION.
--- NOTE | 2018-11-13 13:30 | NUR ---
PT ARRIVED TO FLOOR FROM PACU. ALERT AND ABLE TO ANSWER ALL QUESTIONS. VSS AND WNL
--- NOTE | 2018-11-13 15:00 | NUR ---
ADULT ASSESSMENT AND HISTORY PERFORMED. PT ANSWERS ALL QUESTIONS. MEDICATIONS REVIEWED WITH PT.
[2018-11-13 15:32] VITALS: BP 148/79; Ht 188 cm; Wt 68.2 kg
--- NOTE | 2018-11-13 16:25 | NUR ---
PT RESTING. DENIES PAIN, DENIES ANY OTHER NEEDS AT THIS TIME, CALL LIGHT WITHIN REACH. WILL CONT TO FOLLOW PLAN OF CARE
--- NOTE | 2018-11-13 16:35 | MORECARE ---
CASE MANAGEMENT DISCHARGE SUMMARY PATIENT: CARLO GARLAND UNIT: [id number] ADM DATE: 11/13/18 AGE: 48 : 74 SEX: M ROOM/BED: D.2110 AUTHOR: JOHN FIELD PHYSICIAN: REFERRING PHYSICIAN: LYRIC ARIAS MD DATE OF SERVICE: 11/13/18 Discharge Plan Patient Name: CARLO GARLAND Facility: [facility]:[place] : 1970 Planned Disposition: Nursing Facility HERIBERTO Cert Anticipated Discharge Date: 11/14/18 Discharge Date: Expected LOS: 1 Initial Reviewer: [email or web address] Initial Review Date: 11/13/2018 Generated: 11/13/18 5:35 pm DCPIA - Discharge Planning Initial Assessment Updated by [email or web address]: Carlo Donis on 11/13/18 4:35 pm * Is the patient Alert and Oriented? Yes * How many steps to enter\exit or inside your home? NONE * PCP TIGRE SANDYLOS ANGELESRICHARD * Pharmacy [facility] [place] * Preadmission Environment [facility] * Facility Name [facility] * ADLs Partial Dependent * Partial ADLs (Assistance needed) Bathing Medication Management Transfers * Equipment Wheelchair * Other Equipment ALL MEDICAL EQUIPMENT PROVIDED BY FACILITY * List name and contact numbers for known caregivers / representatives who currently or will assist patient after discharge: JONAH GARLAND, SPOUSE, * Verbal permission to speak to the caregivers and representatives has been obtained from the patient. N/A * Community resources currently utilized Other * Please name any agencies selected above. OUTPATIENT DIALYSIS, [place], MWF, 0930AM, FACILITY TRANSPORTS * Additional services required to return to the preadmission environment? No * Can the patient safely return to the preadmission environment? Yes * Has this patient been hospitalized within the prior 30 days at any hospital? No External Providers External Provider: OTHER-OTHER Next Contact Date: 11/14/2018 Service Request Date: Service Type: Resolution: Reviewer: Comments: Patient Name: CARLO GARLAND Page 71719 at 1635 All edits/amendments must be made on the electronic document DICTATION DATE: 11/13/181634 IDENTIFICATION TECHNICIAN: SARITA 11/13/181634 RPT#: [id number] DC DATE: STATUS: REG [facility] [address] [place] [address] END OF REPORT
--- NOTE | 2018-11-13 16:46 | MORECARE ---
CASE MANAGEMENT DISCHARGE SUMMARY PATIENT: CARLO GARLAND UNIT: [id number] ADM DATE: 11/13/18 AGE: 48 : 74 SEX: M ROOM/BED: D.2110 AUTHOR: EMIR,DOC PHYSICIAN: REFERRING PHYSICIAN: LYRIC ARIAS MD DATE OF SERVICE: 11/13/18 Discharge Plan Patient Name: CARLO GARLAND [facility] [facility] 1970 Planned Disposition: Nursing Facility HERIBERTO Cert Anticipated Discharge Date: 11/14/18 Discharge Date: Expected LOS: 1 Initial Reviewer: [email or web address] Initial Review Date: 11/13/2018 Generated: 11/13/18 5:46 pm Comments DCP- Discharge Planning Updated by [id number]: Carlo Donis on 11/13/18 3:[address] Patient Name: CARLO GARLAND Admission Status: Elective Accout number: [id number] Admission Date: 11-13-2018 : 1970 Admission Diagnosis: Attending: LYRIC ARIAS Current LOS: 1 Anticipated DC Date: 11-14-2018 Planned Disposition: Nursing Facility HERIBERTO Cert Primary Insurance: MEDICARE A & B PLANNED EXTERNAL PROVIDER: [facility], [employer] BED Discharge Planning Comments: CM RECEIVED ORDER FOR IN / OUT [facility] AND TRANSPORTATION FOR DISCHARGE TOMORROW, MET WITH PT IN ROOM TO DISCUSS DISCHARGE PLANNING AND NEEDS. PT REPORTS LIVING AT [facility] FOR YEARS. PT REPORTS LIKING HIS LIVING ARRANGEMENT AND FEELS SAFE THERE. PT HAS WHEELCHAIR. PT DENIES DISCHARGE NEEDS, REPORTS HIS WILL PICK HIM UP FOR DISCHARGE HOME TOMORROW AT ABOUT 2PM. PT CALLED HIS AND VERIFIED ARRANGEMENT WITH CM IN ROOM. CM NOTIFIED LIZBET OF [facility] AT [phone]. FAX DISCHARGE INFORMATION TO [facility] AT [phone]. NURSE REPORT TO BE CALLED TO [facility] AT [phone]. PT'S SPOUSE TO TRANSPORT PT BACK TO [facility] AFTER DIALYSIS. Trauma Therapist: Carlo Donis DCPIA - Discharge Planning Initial Assessment Updated by [email or web address]: Carlo Donis on 11/13/18 4:35 pm * Is the patient Alert and Oriented? Yes * How many steps to enter\exit or inside your home? NONE * PCP SELIN [place] * Pharmacy [facility] [place] * Preadmission Environment [facility] * Facility Name [facility] * ADLs Partial Dependent * Partial ADLs (Assistance needed) Bathing Medication Management Transfers * Equipment Wheelchair * Other Equipment ALL MEDICAL EQUIPMENT PROVIDED BY FACILITY * List name and contact numbers for known caregivers / representatives who currently or will assist patient after discharge: JONAH GARLAND, SPOUSE, * Verbal permission to speak to the caregivers and representatives has been obtained from the patient. N/A * Community resources currently utilized Other * Please name any agencies selected above. OUTPATIENT DIALYSIS, [place], 0930AM, FACILITY TRANSPORTS * Additional services required to return to the preadmission environment? No * Can the patient safely return to the preadmission environment? Yes * Has this patient been hospitalized within the prior 30 days at any hospital? No Last DP export: 11/13/18 3:35 pm Patient Name: CARLO GARLAND Page [phone] at 1646 All edits/amendments must be made on the electronic document DICTATION DATE: 11/13/181644 CHIEF PSYCHOLOGIST: SARITA 11/13/181644 RPT#: [id number] DC DATE: STATUS: REG [facility] [address] [place] [address] END OF REPORT
[2018-11-13 17:16] VITALS: BP 142/72
--- NOTE | 2018-11-13 19:07 | NUR ---
BRUIT AND THRILL PRESENT TO PT LEFT AV FISTULA. USED DOPPLER TO ASSESS PT LEFT LLE PULSES.
--- NOTE | 2018-11-13 19:10 | NUR ---
LCTA DENIES NEEDS BED IS LOW AND CALL LIGHT IS IN REACH...RT JUGULAR SITE APPEARS TO BE A ONE LUMEN CENTRAL LINE ...IT IS DRESSED SUCH AND IS SL AT THIS TIME. LEFT ARM RESERVE WITH NEW HEMOGRAPHT WNL. RT AKA...LEFT LEG IS DARK AND THIS HAS BEEN REPORTED TO ME CURRENT STATE FOR PT. DENIES ANY NEEDS AT THIS TIME
[2018-11-13 19:55] VITALS: BP 144/77
--- NOTE | 2018-11-13 22:10 | NUR ---
PT COMPLAINT AND BS TAKEN 58 PT GIVEN OJ AND A SANDWICH TO EAT
[2018-11-13 23:55] VITALS: BP 101/60
--- NOTE | 2018-11-14 02:53 | NUR ---
I have reviewed this patient and I concur with the Shift Assessment completed by the Licensed Practical Nurse today this shift.
[2018-11-14 03:30] VITALS: BP 113/65
--- NOTE | 2018-11-14 07:30 | NUR ---
A/A/OX4. DENIES ANY PAIN AND NO VOICED REQUESTS. ASSESSMENT COMPLETED AND NO NEW PROBLEMS NOTED.
[2018-11-14 09:00] VITALS: BP 136/70
--- NOTE | 2018-11-14 15:20 | NUR ---
CENTRAL LINE RIGHT JUGLAR REMOVED WITH PRESSURE HELD X 5 MINUTES AND DRESSING APPLIED. PT TOLERATED WELL.
--- NOTE | 2018-11-14 15:40 | NUR ---
I have reviewed this patient and I concur with the Shift Assessment completed by the Licensed Practical Nurse today this shift.
--- NOTE | 2018-11-14 16:58 | NUR ---
DISCHARGE INSTRUCTIONS REVIEWED WITH PT AND VERBALIZES UNDERSTANDING. REPORT CALLED TO [facility] AND SPOKE WITH ELLIOT. LEFT FLOOR VIA W/C WITH ALL PERSONAL BELONGINGS. LEFT FACILITY WITH HIS VIA PRIVATE VEHICLE.
== END 2018-11-14 17:04 | disposition other institution (70) ==
LOC: D.OPS 07:21 → D.M2 14:27 → D.OPS 11-14 17:04
PROVIDERS: Surgery; ATTEND Internal Medicine Nephrology
DX: E11.22 Type 2 diabetes mellitus with diabetic chronic kidney disease (principal); N18.6 End stage renal disease; Z99.2 Dependence on renal dialysis; T82.510A Breakdown (mechanical) of surgically created arteriovenous fistula, initial encounter; D68.59 Other primary thrombophilia; I73.9 Peripheral vascular disease, unspecified; F17.200 Nicotine dependence, unspecified, uncomplicated; Z01.812 Encounter for preprocedural laboratory examination

== ENCOUNTER 2019-03-19 08:43 | Inpatient (IN) | payer MEDICARE ==
[~2019-03-19] VITALS: Ht 188 cm; Wt 85.0 kg
[~2019-03-19 08:43] MED LIST changes: +ROBAXIN500 MG PO
[2019-03-19 09:18] LABS: BASOPHILS 0.9 % (0-2); EOSINOPHILS 2.6 % (0-7); HEMATOCRIT 39.6 % (42.0-54.0); HEMOGLOBIN 13.1 g/dL (13.5-17.5); IMMATURE GRANULOCYTES 0.6 % (0-5); LYMPHOCYTES 15.6 % (15-50); MCH 30.5 pg (26.0-34.0); MCHC 33.1 g/dL (31.0-37.0); MCV 92.1 fL (80.0-100.0); MEAN PLATELET VOLUME 11.1 fL (7.4-10.4); MONOCYTES 9.8 % (2-11); NEUTROPHILS 70.5 % (40-80); PLATELET COUNT 123 10x3/uL (130-400); RDW 14.1 % (11.5-14.5); WBC 8.8 10x3/uL (4.8-10.8)
[2019-03-19 09:31] LABS: ANION GAP 15.9 mmol/L (8-16); CALCIUM 9.5 mg/dL (8.5-10.1); CARBON DIOXIDE 24.3 mmol/L (21.0-32.0); CREATININE - SERUM 5.9 mg/dL (0.6-1.3); POTASSIUM - SERUM 4.2 mmol/L (3.5-5.1)
[2019-03-19 09:33] LABS: INR 1.05 (0.85-1.17); PROTIME 13.2 SECONDS (11.6-15.0)
--- NOTE | 2019-03-19 10:43 | NUR ---
1025 UNABLE TO START IV ANESTHESIA NOTIFIED AND INSULIN GIVEN SQ RIGHT ARM
[2019-03-19 11:04] VITALS: BMI 19.9
--- NOTE | 2019-03-19 11:31 | NUR ---
1020 UNABLE TO START IV AND ANESTHESIA NOTIFIED ORDERS GIVEN TO GIVE SC. REPEAT BS IN 20 MIN 1050 BS 539 PER FINGER STICK. ORDERS GIVEN TO GIVE ANOTHER 20 UNITS OF REGULAR INSULIN AND REPEAT BS IN 20 MIN.1100 20UNITS OF REGULAR INSULIN GIVEN SQ 1120 BS PER FINGER STICK DONE TWICE BS 512. DR TERRY BRANHAM
[2019-03-19] MEDS ORDERED: CATAPRES0.1 MG PO (11:33)
--- NOTE | 2019-03-19 12:13 | NUR ---
1202 IV STARTED IN RIGHT UPPER ARM BY DR STEWART. DR STEWART USED AN ULTRASOUND MACHINE TO LOCATE A VEIN. BLOOD DRAWN FROM IV SITE PRIOR TO FLUIDS FOR A LAB BS. [employer] HERE AND BLOOD SENT TO LAB. DR. STEWART WANTS 200CC NS TO INFUSE TO ATTEMPT TO LOWER PT'S BS.
--- NOTE | 2019-03-19 12:21 | NUR ---
1215 DR STEWART AT BEDSIDE TO INSERT AN IV VIA ULTRA SOUND TO RIGHT ARM. BLOOD GIVEN TO LAB FOR A STAT BS
--- NOTE | 2019-03-19 12:51 | NUR ---
BS 507 BEFORE FLUID GIVEN. BS 426 AFTER NS 200ML GIVEN DR STEWART NOTIFIED AND ORDERS GIVEN TO GIVE 20UNITS IVP.
--- NOTE | 2019-03-19 13:13 | NUR ---
1310 BS 327 AFTER 20UNITS REGULAR INSULIN IV. RESULTS CALLED TO DR STEWART
--- NOTE | 2019-03-19 13:16 | NUR ---
1315 DR STEWART AWARE OF LAST BS. ORDERED A REPEAT BS IN 20 MINUTES TO MAKE SURE PT BS DOES NOT DROP TOO LOW.
[2019-03-19 19:40] LABS: BASOPHILS 0.7 % (0-2); EOSINOPHILS 1.3 % (0-7); HEMATOCRIT 34.3 % (42.0-54.0); HEMOGLOBIN 11.4 g/dL (13.5-17.5); IMMATURE GRANULOCYTES 0.8 % (0-5); LYMPHOCYTES 14.5 % (15-50); MCH 30.2 pg (26.0-34.0); MCHC 33.2 g/dL (31.0-37.0); MCV 90.7 fL (80.0-100.0); MEAN PLATELET VOLUME 10.9 fL (7.4-10.4); MONOCYTES 9.4 % (2-11); NEUTROPHILS 73.3 % (40-80); RBC 3.78 10x6/uL (4.20-6.10); RDW 13.8 % (11.5-14.5)
[2019-03-19 19:55] LABS: ANION GAP 14.5 mmol/L (8-16); CALCIUM 9.1 mg/dL (8.5-10.1); CARBON DIOXIDE 25.3 mmol/L (21.0-32.0); CREATININE - SERUM 6.4 mg/dL (0.6-1.3); POTASSIUM - SERUM 3.8 mmol/L (3.5-5.1)
[2019-03-19 19:59] LABS: PLATELET COUNT 159 10x3/uL (130-400)
[2019-03-19 20:00] VITALS: BP 96/58
[2019-03-20] VITALS: BP 98/55
[2019-03-20 04:00] VITALS: BP 116/68
--- NOTE | 2019-03-20 07:45 | NUR ---
REPORT RECIEVED. PT LYING FOWLERS. PT HAS A R AC THATS SL. RR EVEN AND UNLABORED. NO DISTRESS NOTED. BED IN LOWEST POSITION AND LOCKED. CALL LIGHT WITHIN REACH. WILL CTM
[2019-03-20 07:58] VITALS: BP 159/84
[2019-03-20 12:45] VITALS: BP 143/81
--- NOTE | 2019-03-20 13:40 | NUR ---
I have reviewed this patient and I concur with the Shift Assessment completed by the Licensed Practical Nurse today this shift.
[2019-03-20 14:52] VITALS: Ht 188 cm; Wt 85.0 kg
--- NOTE | 2019-03-20 19:00 | NUR ---
PATIENT CURRENTLY IN DIAYLSIS.
--- NOTE | 2019-03-20 19:35 | NUR ---
PATIENT TO ROOM FROM DIALYSIS VIA STRETCHER ESCORTED BY STAFF.
[2019-03-20 20:00] VITALS: BP 159/83
[2019-03-21 00:30] VITALS: BP 131/62
[2019-03-21 04:00] VITALS: BP 128/68
--- NOTE | 2019-03-21 07:29 | NUR ---
REPORT RECEIVED. WILL CONTINUE WITH POC. PT CURRENTLY RESTING SUPINE. CALL LIGHT W/I REACH. RR EVEN AND UNLABORED ON RA. R.AC PIV IS SALINE LOCKED. WOUND VAC TO LEFT ARM IS IN PLACE. PT DENIES ANY NEEDS. NO S/S OF DISTRESS NOTED. WILL CTM.
[2019-03-21 08:57] VITALS: BP 116/65
[2019-03-21 11:16] LABS: BASOPHILS 1.3 % (0-2); EOSINOPHILS 4.6 % (0-7); HEMATOCRIT 36.2 % (42.0-54.0); HEMOGLOBIN 11.8 g/dL (13.5-17.5); IMMATURE GRANULOCYTES 0.5 % (0-5); LYMPHOCYTES 18.7 % (15-50); MCH 30.1 pg (26.0-34.0); MCHC 32.6 g/dL (31.0-37.0); MCV 92.3 fL (80.0-100.0); MEAN PLATELET VOLUME 10.7 fL (7.4-10.4); MONOCYTES 15.6 % (2-11); NEUTROPHILS 59.3 % (40-80); PLATELET COUNT 129 10x3/uL (130-400); RBC 3.92 10x6/uL (4.20-6.10); RDW 14.6 % (11.5-14.5); WBC 7.6 10x3/uL (4.8-10.8)
[2019-03-21 11:26] LABS: ANION GAP 15.3 mmol/L (8-16); CALCIUM 9.7 mg/dL (8.5-10.1); CARBON DIOXIDE 26.6 mmol/L (21.0-32.0); CREATININE - SERUM 6.2 mg/dL (0.6-1.3); POTASSIUM - SERUM 3.9 mmol/L (3.5-5.1); VANCOMYCIN - RANDOM 28.2 ug/mL (10.0-20.0)
[2019-03-21 13:07] VITALS: BP 113/65
[2019-03-21 16:37] VITALS: BP 103/65
--- NOTE | 2019-03-21 19:15 | NUR ---
PT CARE ASSUMED. RR EVEN AND UNLABORED. NO S/S OF DISTESS NOTED. MOM AT BEDSIDE. NO NEEDS EXPRESSED. WILL CPOC.
[2019-03-21 20:00] VITALS: BP 118/64
[2019-03-22] VITALS: BP 115/62
[2019-03-22 04:30] VITALS: BP 101/59
--- NOTE | 2019-03-22 05:14 | NUR ---
[facility] IS NOT WORKING. UNABLE TO GET PT WEIGHT.
[2019-03-22 06:52] LABS: ANION GAP 18.8 mmol/L (8-16); CALCIUM 8.8 mg/dL (8.5-10.1); CARBON DIOXIDE 21.4 mmol/L (21.0-32.0); POTASSIUM - SERUM 4.2 mmol/L (3.5-5.1)
[2019-03-22 06:54] LABS: CREATININE - SERUM 7.8 mg/dL (0.6-1.3)
[2019-03-22 07:11] LABS: VANCOMYCIN - RANDOM 24.1 ug/mL (10.0-20.0)
--- NOTE | 2019-03-22 07:32 | NUR ---
RECIEVED REPORT. PATIENT IS RESTING QUIETLY ON HIS BACK IN BED WITH THE LIGHTS OFF. DENIES ANY NEEDS AT THIS TIME.
[2019-03-22 07:36] LABS: HEMATOCRIT 34.1 % (42.0-54.0); HEMOGLOBIN 10.8 g/dL (13.5-17.5); MCH 30.5 pg (26.0-34.0); MCHC 31.7 g/dL (31.0-37.0); MEAN PLATELET VOLUME 11.3 fL (7.4-10.4); PLATELET COUNT 115 10x3/uL (130-400); RBC 3.54 10x6/uL (4.20-6.10); RDW 14.6 % (11.5-14.5); WBC 6.4 10x3/uL (4.8-10.8)
[2019-03-22 07:37] LABS: MCV 96.3 fL (80.0-100.0)
[2019-03-22 09:04] VITALS: BP 125/75
[2019-03-22 10:13] LABS: BASOPHILS 1 % (0-2); EOSINOPHILS 3 % (0-7); HYPOCHROMASIA OCC; LYMPHOCYTES 29 % (15-50); MONOCYTES 13 % (2-11); NEUTROPHILS 52 % (40-80); PLATELET ESTIMATE DECREASED; ROULEAUX OCC
--- NOTE | 2019-03-22 10:45 | NUR ---
NWPT CHANGED. TWO PIECES OF BLACK FOAM REMOVED AND TWO PIECES OF BLACK FOAM APPLIED. NWPT SET AT 125MMHG. THE PATIENT APPEARS COMFORTABLE AND HAS NO QUESTIONS OR CONCERNS AT THIS TIME.
[2019-03-22 12:20] VITALS: BP 112/71
--- NOTE | 2019-03-22 12:29 | NUR ---
PATIENT HAD THE WOUND VAC DRESSING CHANGED TODAY BY WOULD CARE NURSE. PATIENT TOLERATED.
--- NOTE | 2019-03-22 14:02 | NUR ---
Nutrition Follow-up: Pt continues to report good appetite/PO intake. Diet: Renal ADA PO intake: 63% avg of last 4 meals Wt: 155# Last BM: 03/22 Meds reviewed Labs reviewed Rec continue current diet as tolerated. [place] food preferences within diet restrictions. RD following.
--- NOTE | 2019-03-22 15:19 | MORECARE ---
CASE MANAGEMENT DISCHARGE SUMMARY PATIENT: CARLO GARLAND UNIT: [id number] ADM DATE: 03/19/19 AGE: 49 : 74 SEX: M ROOM/BED: D.4312 AUTHOR: JOHN FIELD PHYSICIAN: REFERRING PHYSICIAN: LYRIC ARIAS MD DATE OF SERVICE: 03/22/19 Discharge Plan Patient Name: CARLO GARLAND [facility] [facility] 1970 Planned Disposition: Nursing Facility [facility] Cert Anticipated Discharge Date: 03/23/19 Discharge Date: Expected LOS: 4 Initial Reviewer: [id number] Initial Review Date: 03/22/2019 Generated: 03/22/19 4:19 pm Comments DCP- Discharge Planning Updated by [id number]: Carlo Gagandeep on 03/22/19 2:[address] Patient Name: CARLO GARLAND Admission Status: Elective Accout number: [id number] Admission Date: 03-19-2019 : 1970 Admission Diagnosis:INFECT/INFLM REACT D/T OTH CARDI/VASC DEV/IMPLNT/GRFT, Attending: LYRIC ARIAS Current LOS: 3 Anticipated DC Date: 03-23-2019 Planned Disposition: Nursing Facility [facility] Cert Primary Insurance: MEDICARE A & B PLANNED EXTERNAL PROVIDER: [facility], LONG TERM CARE MEDICAID BED Discharge Planning Comments: CM RECEIVED ORDER FOR WOUND VAC FOR DISCHARGE HOME. CM MET WITH PT IN ROOM WHO REPORTS LIVING AT [facility] C[facility]. PT WILL BE RETURNING THERE AT DISCHARGE, FAMILY WILL TRANSPORT HOME. PT REPORTS HAVING CATHETER IN HIS NECK FOR DIALYSIS AND THE [facility]-WAY PROVIDES HIS MEDICAL EQUIPMENT. PT AMBULATES WITH WHEELCHAIR AND CAN TRANSFER SELF. PT ATTENDS DIALYSIS MWF IN [place] WITH TRANSPORTATION PROVIDED BY THE [facility]. CM CALLED [facility], , SPOKE TO KAYLA, PROVIDED INFORMATION, SHE WILL NEED SPECIFIC ORDER FOR VAC WITH TYPE OF FOAM, SETTINGS AND FREQUENCY OF CHANGES. CM OBTAINED ORDERS, SPOKE TO ANDERS OF WOUND CARE AND OBTAINED MEASUREMENTS: 15.8 LENGTH, 6.2 WIDTH, 3.0 DEPTH, 100 % GRANULATION WITH NO SLUF. CM FAXED INFORMATION TO [facility] AT [phone]. [facility] WILL HAVE TO ORDER WOUND VAC AND SUPPLIES. CM TO FOLLOW UP WITH [facility] TO DETERMINE WHEN THEY HAVE RECEIVED THE MATERIALS AND ACCEPT PT. [facility], . C 13 Catapult Operator: Carlo Donis DCPIA - Discharge Planning Initial Assessment Updated by [id number]: Carlo Donis on 03/22/19 3:12 pm * Is the patient Alert and Oriented? Yes * How many steps to enter\exit or inside your home? NONE * PCP SELIN SANDY [place] * [facility] * Preadmission Environment Sprinkling System Irrigator Custodial * Facility Name [facility] * ADLs Partial Dependent * Partial ADLs (Assistance needed) Bathing Medication Management * Equipment Wheelchair * Other Equipment ALL MEDICAL EQUIPMENT PROVIDED BY FACILITY * List name and contact numbers for known caregivers / representatives who currently or will assist patient after discharge: JONAH GARLAND, SPOUSE, BRENDEN GONCALVES, MOTHER, * Verbal permission to speak to the caregivers and representatives has been obtained from the patient. Yes * Community resources currently utilized Other * Please name any agencies selected above. OUTPATIENT DIALYSIS, MWF, [address] [facility], FACILITY TRANSPORTS * Additional services required to return to the preadmission environment? Yes * Can the patient safely return to the preadmission environment? Yes * Has this patient been hospitalized within the prior 30 days at any hospital? No External Providers External Provider: OTHER-OTHER Next Contact Date: 03/22/2019 Service Request Date: Service Type: Resolution: Reviewer: Comments: Patient Name: CARLO GARLAND Page 34313 at 1519 All edits/amendments must be made on the electronic document DICTATION DATE: 03/22/19 151 STRATEGIC ALLIANCES MANAGER: SARITA 03/22/19 1519 RPT#: [id number] [place] DATE: STATUS: ADM IN [facility] [address] [place] [address] END OF REPORT
--- NOTE | 2019-03-22 16:52 | MORECARE ---
CASE MANAGEMENT DISCHARGE SUMMARY PATIENT: CARLO GARLAND UNIT: [id number] ADM DATE: 03/19/19 AGE: 49 : 74 SEX: M ROOM/BED: D.1565 AUTHOR: JOHN FIELD PHYSICIAN: REFERRING PHYSICIAN: LYRIC ARIAS MD DATE OF SERVICE: 03/22/19 Discharge Plan Patient Name: CARLO GARLAND [facility] [facility] 1970 Planned Disposition: Nursing Facility [facility] Cert Anticipated Discharge Date: 03/23/19 Discharge Date: Expected LOS: 4 Initial Reviewer: [id number] Initial Review Date: 03/22/2019 Generated: 03/22/19 5:52 pm Comments DCP- Discharge Planning Updated by [email or web address]: Carlo Gagandeep on 03/22/19 2:[address] Patient Name: CARLO GARLAND Admission Status: Elective Accout number: [id number] Admission Date: 03-19-2019 : 1970 Admission Diagnosis:INFECT/INFLM REACT D/T OTH CARDI/VASC DEV/IMPLNT/GRFT, Attending: LYRIC ARIAS Current LOS: 3 Anticipated DC Date: 03-23-2019 Planned Disposition: Nursing Facility [facility] Cert Primary Insurance: MEDICARE A & B PLANNED EXTERNAL PROVIDER: [facility], LONG TERM CARE MEDICAID BED Discharge Planning Comments: CM RECEIVED ORDER FOR WOUND VAC FOR DISCHARGE HOME. CM MET WITH PT IN ROOM WHO REPORTS LIVING AT [facility] IN [place] CARE. PT WILL BE RETURNING THERE AT DISCHARGE, FAMILY WILL TRANSPORT HOME. PT REPORTS HAVING CATHETER IN HIS NECK FOR DIALYSIS AND THE [facility] PROVIDES HIS MEDICAL EQUIPMENT. PT AMBULATES WITH WHEELCHAIR AND CAN TRANSFER SELF. PT ATTENDS DIALYSIS MWF IN [place] WITH TRANSPORTATION PROVIDED BY THE [facility]. CM CALLED [facility], , SPOKE TO KAYLA, PROVIDED INFORMATION, SHE WILL NEED SPECIFIC ORDER FOR VAC WITH TYPE OF FOAM, SETTINGS AND FREQUENCY OF CHANGES. CM OBTAINED ORDERS, SPOKE TO ANDERS OF WOUND CARE AND OBTAINED MEASUREMENTS: 15.8 LENGTH, 6.2 WIDTH, 3.0 DEPTH, 100 % GRANULATION WITH NO SLUF. CM FAXED INFORMATION TO [facility] AT [phone]. [facility] WILL HAVE TO ORDER WOUND VAC AND SUPPLIES. CM TO FOLLOW UP WITH [facility] TO DETERMINE WHEN THEY HAVE RECEIVED THE MATERIALS AND ACCEPT PT. [facility], . Gun Perforator: Carlo Donis DCPIA - Discharge Planning Initial Assessment Updated by [email or web address]: Carlo Donis on 03/22/19 3:12 pm * Is the patient Alert and Oriented? Yes * How many steps to enter\exit or inside your home? NONE * PCP SELIN SANDY [place] * [facility] * Preadmission Environment Tape Sewer Shelter * Facility Name [facility] * ADLs Partial Dependent * Partial ADLs (Assistance needed) Bathing Medication Management * Equipment Wheelchair * Other Equipment ALL MEDICAL EQUIPMENT PROVIDED BY FACILITY * List name and contact numbers for known caregivers / representatives who currently or will assist patient after discharge: JONAH AGRLAND, SPOUSE, BRENDEN GONCALVES, MOTHER, * Verbal permission to speak to the caregivers and representatives has been obtained from the patient. Yes * Community resources currently utilized Other * Please name any agencies selected above. OUTPATIENT DIALYSIS, MWF, [address] [facility], FACILITY TRANSPORTS * Additional services required to return to the preadmission environment? Yes * Can the patient safely return to the preadmission environment? Yes * Has this patient been hospitalized within the prior 30 days at any hospital? No External Providers External Provider: OTHER-OTHER Next Contact Date: 03/22/2019 Service Request Date: Service Type: Resolution: Reviewer: Comments: Last DP export: 03/22/19 2:19 p Patient Name: CARLO GARLAND Page 96891 at 1652 All edits/amendments must be made on the electronic document DICTATION DATE: 03/22/191651 SERVICE CENTER COORDINATOR: SARITA 03/22/191651 RPT#: [id number] [place] DATE: STATUS: ADM IN [facility] [address] [place] [address] END OF REPORT
--- NOTE | 2019-03-22 19:59 | NUR ---
EVENING ROUNDS COMPLETED. REPORT RECEIVED. PT SITTING UP IN BED WITH EYES OPEN, RR EVEN AND UNLABORED. BED IN LOW POSITION. NO S/S OF DISTRESS NOTED. DIALYSIS IN ROOM. INTRODUCED SELF TO PT. ADMINISTERED ORDERED ANALGESIC FOR PT COMPLAINTS OF PAIN IN ARM, PT STATES PAIN OF A 5 ON A SCALE OF 0-10. PT DENIES FURTHER NEEDS AT THIS TIME. CALL LIGHT IN REACH. WILL CTM.
[2019-03-23] VITALS: BP 79/49
--- NOTE | 2019-03-23 00:16 | NUR ---
PAGED NURSE PRACTICIONER RESIDENTIAL TREATMENT STAFF FOR PT BLOOD PRESSURE OF 79/49
--- NOTE | 2019-03-23 00:33 | NUR ---
ZAINA MORRISON NURSE PRACTITIONER WAS NOTIFIED OF PT BLOOD PRESSURE OF 79/49. SHE ORDERED A ONE TIME 500 ML BOLUS OF NORMAL SALINE.
--- NOTE | 2019-03-23 01:10 | NUR ---
BOLUS DELIVERED, BLOOD PRESSURE CURRENTLY AT 81/49. WILL CTM.
[2019-03-23 04:00] VITALS: BP 81/54
--- NOTE | 2019-03-23 05:55 | NUR ---
I have reviewed this patient and I concur with the Shift Assessment completed by the Licensed Practical Nurse today this shift.
[2019-03-23 06:21] LABS: BASOPHILS 1.4 % (0-2); EOSINOPHILS 4.7 % (0-7); HEMATOCRIT 34.8 % (42.0-54.0); HEMOGLOBIN 11.2 g/dL (13.5-17.5); IMMATURE GRANULOCYTES 0.5 % (0-5); LYMPHOCYTES 23.8 % (15-50); MCH 29.9 pg (26.0-34.0); MCHC 32.2 g/dL (31.0-37.0); NEUTROPHILS 54.6 % (40-80); PLATELET COUNT 123 10x3/uL (130-400); RBC 3.74 10x6/uL (4.20-6.10); RDW 14.4 % (11.5-14.5); WBC 5.9 10x3/uL (4.8-10.8)
[2019-03-23 06:22] LABS: ANION GAP 15.7 mmol/L (8-16); CALCIUM 8.6 mg/dL (8.5-10.1); CARBON DIOXIDE 25.8 mmol/L (21.0-32.0); POTASSIUM - SERUM 3.5 mmol/L (3.5-5.1); VANCOMYCIN - RANDOM 19.5 ug/mL (10.0-20.0)
[2019-03-23 07:55] VITALS: BP 91/52
--- NOTE | 2019-03-23 09:30 | NUR ---
PATIENT SITTING UP IN BED THIS AM. RESP EVEN AND UNLABORED. NO DISTRESS. PATIENTS MOTHER AT BEDSIDE.
[2019-03-23] MEDS ORDERED: CATAPRES0.1 MG PO (09:52)
[2019-03-23 12:25] VITALS: BP 96/59
--- NOTE | 2019-03-23 13:43 | MORECARE ---
CASE MANAGEMENT DISCHARGE SUMMARY PATIENT: CARLO GARLAND UNIT: [id number] ADM DATE: 03/19/19 AGE: 49 : 74 SEX: M ROOM/BED: D.7326 AUTHOR: JOHN FIELD PHYSICIAN: REFERRING PHYSICIAN: LYRIC ARIAS MD DATE OF SERVICE: 03/23/19 Discharge Plan Patient Name: CARLO GARLAND [facility]:[place] : 1970 Planned Disposition: Nursing Facility [facility] Cert Anticipated Discharge Date: 03/23/19 Discharge Date: Expected LOS: 4 Initial Reviewer: [id number] Initial Review Date: 03/22/2019 Generated: 03/23/19 2:42 pm Comments DCP- Discharge Planning Updated by [email or web address]: Jonna Miller on 03/23/19 12:[address] LATE ENTRY CM TELEPHONED [facility] AFTER SPEAKING W/ ZAINA, RENAL NEMATOLOGIST. THE PATIENT CAN BE DISCHARGED IF WOUND VAC IS AVAILABLE. CM SPOKE W/ LEANDER AT [facility]. THE WOUND VAC EQUIPMENT IS AVAILABLE HOWEVER THE NURSE WHO WILL APPLY THE WOUND VAC WILL BE ON Monday03/24/19. THEREFORE CM WILL F/U ON MONDAY REGARDING DISCHARGE TO [facility]. DCP- Discharge Planning Updated by [id number]: Carlo Donis on 03/22/19 2:[address] Patient Name: CARLO GARLAND Admission Status: Elective Accout number: [id number] Admission Date: 03-19-2019 : 1970 Admission Diagnosis:INFECT/INFLM REACT D/T OTH CARDI/VASC DEV/IMPLNT/GRFT, Attending: LYRIC ARIAS Current LOS: 3 Anticipated DC Date: 03-23-2019 Planned Disposition: Nursing Facility [facility] Cert Primary Insurance: MEDICARE A & B PLANNED EXTERNAL PROVIDER: [facility], [facility] MEDICAID BED Discharge Planning Comments: CM RECEIVED ORDER FOR WOUND VAC FOR DISCHARGE HOME. CM MET WITH PT IN ROOM WHO REPORTS LIVING AT [facility] IN PHARMACY SALES REPRESENTATIVE CARE. PT WILL BE RETURNING THERE AT DISCHARGE, FAMILY WILL TRANSPORT HOME. PT REPORTS HAVING CATHETER IN HIS NECK FOR DIALYSIS AND THE ASSISTED PROVIDES HIS MEDICAL EQUIPMENT. PT AMBULATES WITH WHEELCHAIR AND CAN TRANSFER SELF. PT ATTENDS DIALYSIS MWF IN [place] WITH TRANSPORTATION PROVIDED BY THE ASSISTED. CM CALLED [facility], , SPOKE TO KAYLA, PROVIDED INFORMATION, SHE WILL NEED SPECIFIC ORDER FOR VAC WITH TYPE OF FOAM, SETTINGS AND FREQUENCY OF CHANGES. CM OBTAINED ORDERS, SPOKE TO ANDERS OF WOUND CARE AND OBTAINED MEASUREMENTS: 15.8 LENGTH, 6.2 WIDTH, 3.0 DEPTH, 100 % GRANULATION WITH NO SLUF. CM FAXED INFORMATION TO [facility] AT [phone]. [facility] WILL HAVE TO ORDER WOUND VAC AND SUPPLIES. CM TO FOLLOW UP WITH [facility] TO DETERMINE WHEN THEY HAVE RECEIVED THE MATERIALS AND ACCEPT PT. [facility], . [place] Supervisor: Carlo Donis DCPIA - Discharge Planning Initial Assessment Updated by [id number]: Carlo Donis on 03/22/19 3:12 pm * Is the patient Alert and Oriented? Yes * How many steps to enter\exit or inside your home? NONE * PCP TIGRE SANDYHUEYSVILLERICHARD * Pharm[facility] * Preadmission Environment [facility] * Facility Name [facility] * ADLs Partial Dependent * Partial ADLs (Assistance needed) Bathing Medication Management * Equipment Wheelchair * Other Equipment ALL MEDICAL EQUIPMENT PROVIDED BY FACILITY * List name and contact numbers for known caregivers / representatives who currently or will assist patient after discharge: JONAH GARLAND, SPOUSE, BRENDEN GONCALVES, MOTHER, * Verbal permission to speak to the caregivers and representatives has been obtained from the patient. Yes * Community resources currently utilized Other * Please name any agencies selected above. OUTPATIENT DIALYSIS, MWF, [address] [facility], FACILITY TRANSPORTS * Additional services required to return to the preadmission environment? Yes * Can the patient safely return to the preadmission environment? Yes * Has this patient been hospitalized within the prior 30 days at any hospital? No Last DP export: 03/22/19 3:52 p Patient Name: CARLO GARLAND Page 64225 at 1343 All edits/amendments must be made on the electronic document DICTATION DATE: 03/23/19 1342 CUFF SETTER: SARITA 03/23/19 1342 RPT#: [id number] DC DATE: STATUS: ADM IN [facility] [address] [place] [address] END OF REPORT
[2019-03-23 16:02] VITALS: BP 92/55
[2019-03-23 20:00] VITALS: BP 116/53
[2019-03-24] VITALS: BP 118/58
--- NOTE | 2019-03-24 00:03 | NUR ---
INITIAL ROUNDS COMPLETED AT 1914 HRS. PT RESTING WITH EYES CLOSED. RESP EVEN AND REGULAR. MOTHER AT BEDSIDE. ASSESSMENT COMPLETED AT 2024 HRS. VSS. ALERT AND ORIENTED TO PERSON,PLACE AND TIME. [place]. WOUND VAC TO L ARM WITH GOOD SEAL NOTED. LUNGS ESSENTIALLY CTA. ABD SOFT WITH ACTIVE BS NOTED. IV TO RAC SL. L CHEST HEMOSPLIT CLEAN, DRY AND INTACT. OLD [place]. DRESSING TO L CALF NOTED. L LOWER LEG AND FOOT DARK. PM FSBS 133. NO COVERAGE NEEDED. PM MEDS GIVEN. PT CURRENTLY RESTING WITH EYES CLOSED. RESP EVEN AND REGULAR. SR UP X2,CALL LIGHT WITHIN REACH.
--- NOTE | 2019-03-24 01:43 | NUR ---
PT RESTING WITH EYES CLOSED. RESP EVEN AND REGULAR. SR UP X2, CALL LIGHT WITHIN REACH.
--- NOTE | 2019-03-24 04:38 | NUR ---
PT RESTING WITH EYES CLOSED. RESP EVEN AND REGULAR. SR UP X2, CALL LIGHT WITHIN REACH.
[2019-03-24 05:43] VITALS: BP 106/66
[2019-03-24 06:18] LABS: EOSINOPHILS 6.6 % (0-7); HEMATOCRIT 34.7 % (42.0-54.0); HEMOGLOBIN 11.3 g/dL (13.5-17.5); IMMATURE GRANULOCYTES 0.5 % (0-5); LYMPHOCYTES 24.9 % (15-50); MCH 30.1 pg (26.0-34.0); MCHC 32.6 g/dL (31.0-37.0); MCV 92.3 fL (80.0-100.0); MEAN PLATELET VOLUME 10.7 fL (7.4-10.4); MONOCYTES 18.7 % (2-11); NEUTROPHILS 47.3 % (40-80); PLATELET COUNT 118 10x3/uL (130-400); RBC 3.76 10x6/uL (4.20-6.10); RDW 14.5 % (11.5-14.5); WBC 5.6 10x3/uL (4.8-10.8)
--- NOTE | 2019-03-24 06:40 | NUR ---
VSS THROUGHOUT NIGHT. PT DENIED ANY DISCOMFORT. AM FSBS 109. NEEDS MET; WILL CONTINUE TO MONITOR.
[2019-03-24 06:51] LABS: ANION GAP 15.2 mmol/L (8-16); CALCIUM 8.2 mg/dL (8.5-10.1); CARBON DIOXIDE 23.1 mmol/L (21.0-32.0); POTASSIUM - SERUM 3.3 mmol/L (3.5-5.1); VANCOMYCIN - RANDOM 18.9 ug/mL (10.0-20.0)
[2019-03-24 06:53] LABS: CREATININE - SERUM 7.3 mg/dL (0.6-1.3)
[2019-03-24 07:58] VITALS: BP 97/62
--- NOTE | 2019-03-24 11:39 | NUR ---
DC PAPERWORK GONE OVER AND SIGNED WITH PT. ALL QUESTIONS ANSWERED. REPORT CALLED TO GOMEZ AT [facility]. WHEELED PT TO FRONT ENTRANCE. PTS MOM PRESENT AT THIS TIME. R AC DC, CATH TIP FULLY INTACT.
--- NOTE | 2019-03-26 08:46 | MORECARE ---
CASE MANAGEMENT DISCHARGE SUMMARY PATIENT: CARLO GARLAND UNIT: [id number] ADM DATE: 03/19/19 AGE: 49 : 74 SEX: M ROOM/BED: D.8816 AUTHOR: JOHN FIELD PHYSICIAN: REFERRING PHYSICIAN: LYRIC ARIAS MD DATE OF SERVICE: 03/26/19 Discharge Plan Patient Name: CARLO GARLAND Facility: [facility]:[place] : 1970 Planned Disposition: Nursing Facility [facility] Cert Anticipated Discharge Date: 03/24/19 Discharge Date: 03/24/2019 Expected LOS: 5 Initial Reviewer: [id number] Initial Review Date: 03/22/2019 Generated: 03/26/19 9:45 am Comments DCP- Discharge Planning Updated by [id number]: Jonna Miller on 03/23/19 12:[address] LATE ENTRY CM TELEPHONED [facility] AFTER SPEAKING W/ ZAINA, RENAL DENIAL MANAGEMENT REPRESENTATIVE. THE PATIENT CAN BE DISCHARGED IF WOUND VAC IS AVAILABLE. CM SPOKE W/ LEANDER AT [facility]. THE WOUND VAC EQUIPMENT IS AVAILABLE HOWEVER THE NURSE WHO WILL APPLY THE WOUND VAC WILL BE ON Monday03/24/19. THEREFORE CM WILL F/U ON MONDAY REGARDING DISCHARGE TO [facility]. DCP- Discharge Planning Updated by [id number]: Carlo Donis on 03/22/19 2:[address] Patient Name: CARLO GARLAND Admission Status: Elective Accout number: [id number] Admission Date: 03-19-2019 : 1970 Admission Diagnosis:INFECT/INFLM REACT D/T OTH CARDI/VASC DEV/IMPLNT/GRFT, Attending: LYRIC ARIAS Current LOS: 3 Anticipated DC Date: 03-23-2019 Planned Disposition: Nursing Facility [facility] Cert Primary Insurance: MEDICARE A & B PLANNED EXTERNAL PROVIDER: [facility], RN VASCULAR CARE MEDICAID BED Discharge Planning Comments: CM RECEIVED ORDER FOR WOUND VAC FOR DISCHARGE HOME. CM MET WITH PT IN ROOM WHO REPORTS LIVING AT [facility] IN ASSISTED CARE. PT WILL BE RETURNING THERE AT DISCHARGE, FAMILY WILL TRANSPORT HOME. PT REPORTS HAVING CATHETER IN HIS NECK FOR DIALYSIS AND THE RETIREMENT PROVIDES HIS MEDICAL EQUIPMENT. PT AMBULATES WITH WHEELCHAIR AND CAN TRANSFER SELF. PT ATTENDS DIALYSIS MWF IN [place] WITH TRANSPORTATION PROVIDED BY THE RETIREMENT. CM CALLED [facility], , SPOKE TO KAYLA, PROVIDED INFORMATION, SHE WILL NEED SPECIFIC ORDER FOR VAC WITH TYPE OF FOAM, SETTINGS AND FREQUENCY OF CHANGES. CM OBTAINED ORDERS, SPOKE TO ANDERS OF WOUND CARE AND OBTAINED MEASUREMENTS: 15.8 LENGTH, 6.2 WIDTH, 3.0 DEPTH, 100 % GRANULATION WITH NO SLUF. CM FAXED INFORMATION TO [facility] AT [phone]. [facility] WILL HAVE TO ORDER WOUND VAC AND SUPPLIES. CM TO FOLLOW UP WITH [facility] TO DETERMINE WHEN THEY HAVE RECEIVED THE MATERIALS AND ACCEPT PT. [facility], . Gasket Inspector: Carlo Donis NYPIA - Discharge Planning Initial Assessment Updated by [id number]: Carlo Donis on 03/22/19 3:12 pm * Is the patient Alert and Oriented? Yes * How many steps to enter\exit or inside your home? NONE * PCP DR. KEELY HERNANDEZ SANDY RIDGERICHARD * Pharm[facility] * Preadmission Environment [facility] * Facility Name [facility] * ADLs Partial Dependent * Partial ADLs (Assistance needed) Bathing Medication Management * Equipment Wheelchair * Other Equipment ALL MEDICAL EQUIPMENT PROVIDED BY FACILITY * List name and contact numbers for known caregivers / representatives who currently or will assist patient after discharge: JONAH GARLAND, SPOUSE, BRENDEN GONCALVES, MOTHER, * Verbal permission to speak to the caregivers and representatives has been obtained from the patient. Yes * Community resources currently utilized Other * Please name any agencies selected above. OUTPATIENT DIALYSIS, MWF, [facility], FACILITY TRANSPORTS * Additional services required to return to the preadmission environment? Yes * Can the patient safely return to the preadmission environment? Yes * Has this patient been hospitalized within the prior 30 days at any hospital? No Last DP export: 03/23/19 12:43 p Patient Name: CARLO GARLAND Page 57966 at 0846 All edits/amendments must be made on the electronic document DICTATION DATE: 03/26/1945 KERFER MACHINE OPERATOR: SARITA 03/26/19 0845 RPT#: [id number] DC DATE:03/24/19 STATUS: DIS IN [facility] [address] [facility] [place] [address] END OF REPORT
--- NOTE | 2019-04-02 10:49 | OP ---
PATIENT NAME: RORO GARLAND MEDICAL RECORD: [id number] :74 LOCATION:D.M2 D.2136 ADMISSION DATE:03/19/19 SURGEON: MARVIN REYES MD DATE OF OPERATION: 03/19/2019 REFERRED BY: Dr. Abraham of [place]. 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 OPERATION PERFORMED: Excision of infected vascular graft including removal of HeRO graft and HeRO venous outflow device and insertion of a HemoSplit dialysis catheter via the left subclavian vein and also open direct repair with a bovine pericardial patch of the brachial artery at the site of removal of the infected PTFE graft. SURGEON: Marvin Reyes MD ANESTHESIA: General endotracheal. PREOPERATIVE NOTE: Mr. Garland is a very nice, but unfortunate 49-year-old white male, type 1 diabetic with end-stage renal disease, on chronic hemodialysis. He has had multiple accesses and multiple dialysis access failures due to a combination of a thrombophilia and infection. He has very little left in the way of venous access for any other hemodialysis. He has been dialyzing now for a few months with a left arm HeRO graft, which was recently a few months ago revised with a new PTFE segment. This was inserted into the central venous circulation through a subclavicular approach to the left subclavian vein. This is somewhat unusual as least as far as a standard HeRO graft protocols. This was because he had no patent internal jugular vein, right or left. He now has pus draining from a sinus, which has appeared over the old PTFE graft segments, which is thrombosed. The area is erythematous and indurated and certainly there is a clinical certainty that the underlying old PTFE graft segment is infected. How extensive this is and whether or not it might have spread to involve the arterial anastomosis or the new PTFE segment and perhaps even the central HeRO outflow segment is uncertain. He is brought to the operating room with plans to remove the infected graft. If possible, we will salvage the HeRO for continued dialysis access. If not, then we have to remove that HeRO then he will need a dialysis catheter placed there to the left subclavian. DESCRIPTION OF PROCEDURE: Under general endotracheal anesthesia, the patient was prepped and draped in sterile manner. The graft in the left arm was then exposed through a long incision, which started directly over the old PTFE segment. There was extensive infection with purulent mucoid material, which extended up to and involve the arterial anastomosis. The dissection was continued distally and then proximally and I found that the new HeRO graft segment was also grossly infected and would have to be excised. The incision was then extended upwards all the way into the deltopectoral groove. The PTFE graft was closed near the HeRO connector and dissected completely free, distally to the arterial anastomosis. The graft was closed and divided and the infected graft portion was excised. The artery was then exposed proximal and distal to this anastomosis. It was controlled with Silastic loops and occluded with those loops as needed. The old PTFE cuff on the artery was totally excised along with a rim of relatively healthy artery, it was not infected. He did have considerable atherosclerotic disease and calcification which subsequently OPERATIVE REPORT [id number] RORO GARLAND necessitated an endarterectomy of that old anastomotic site before it could be reconstructed. The artery was flushed proximally and distally with heparinized saline. The endarterectomy was performed over about an inch length of that vessel extending above and below the arteriotomy. The arteriotomy was further debrided and then I chose a bovine pericardial patch as he did not have a suitable vein that was easily accessible to use as a vein patch. The pericardium was cut to fit and shaped in a pam pattern and it was then sutured to the arteriotomy or arterial defect with continuous running 7-0 Prolene. When that was completed, the suture line was treated with fibrin sealant, and with release of the occluding clamps and loops, excellent flow immediately developed in the brachial artery and the suture line was hemostatic. There was good Doppler flow in the brachial artery distal and in the ulnar and radial arteries at the wrist. The wound was irrigated with Ancef and gentamicin solution, infiltrated with 0.25% Marcaine and the exposed artery was covered by partially closing the wound with interrupted 3-0 Vicryl and running intracuticular 4-0 Monocryl. The existing venous outflow device was then removed and replaced with a 23 cm HemoSplit, which was inserted into the left subclavian vein and under fluoroscopy its tip positioned deeply into the right atrium and inferior vena cava. A pursestring suture of 2-0 Vicryl was utilized to assure hemostasis at the entry site. Both lumens of the catheter were then accessed and aspirated, free return of blood confirmed. It was then flushed with saline and then heparin-locked, clamped and capped. The catheter itself was placed through an inferolateral incision and pulled through a short subcutaneous tunnel up to the deltopectoral groove. The Dacron felt cuff was left in the subcutaneous tissues about midway in this tunnel. The catheter was sutured to the skin with 2-0 Prolene and the wound then further irrigated with Ancef/gentamicin solution and infiltrated with 0.25% Marcaine without epinephrine. The deltopectoral groove was closed with interrupted 3-0 Vicryl and running intracuticular 4-0 Monocryl and the remaining long J-shaped incision in the arm was dressed with application of a wound VAC with a polk or silver impregnated sponge, which was subsequently attached to a VAC pump with continuous negative 125 mmHg suction. At that point, the patient was awakened and in stable condition taken to the recovery room. Blood loss was about 150 cc, none was replaced intraoperatively, and no drains were used other than the wound VAC dressing. The wound was closed over the exposed and repaired brachial artery and no wound VAC sponges in proximity there. TRANSINT:[id number] Voice Confirmation ID: [id number] DOCUMENT ID: [id number] MARVIN REYES MD at 1049 CC: JERROD ABRAHAM MD [id number] DICTATION DATE: 03/29/19 1117 OCCUPATIONAL THERAPY AIDES TEACHER: 03/29/19 1213 DIS IN 03/24/19 [id number] [place] [address]
== END 2019-03-24 11:42 | DRG 252 ==
LOC: D.OPS 08:43 → D.M2 19:12 → D.SDCHOLD 03-21 08:12 → D.M2 03-24 11:42
PROVIDERS: Anesthesiology; Surgery; ADMIT Internal Medicine Nephrology; ATTEND Internal Medicine Nephrology
PROC: 03U80JZ Supplement Left Brachial Artery with Synthetic Substitute, Open Approach (ICD-10-PCS; principal; 2019-03-19 12:30)
PROC: 0XP70JZ Removal of Synthetic Substitute from Left Upper Extremity, Open Approach (ICD-10-PCS; 2019-03-19 12:30)
PROC: 05H633Z Insertion of Infusion Device into Left Subclavian Vein, Percutaneous Approach (ICD-10-PCS; 2019-03-19 12:30)
DX: T82.7XXA Infection and inflammatory reaction due to other cardiac and vascular devices, implants and grafts, initial encounter (principal); A41.9 Sepsis, unspecified organism; N18.6 End stage renal disease; I12.0 Hypertensive chronic kidney disease with stage 5 chronic kidney disease or end stage renal disease; E11.65 Type 2 diabetes mellitus with hyperglycemia; E11.22 Type 2 diabetes mellitus with diabetic chronic kidney disease; Z99.2 Dependence on renal dialysis; Z86.73 Personal history of transient ischemic attack (TIA), and cerebral infarction without residual deficits